=== PATIENT | male | born 1980 | race African-American/Black ===

== ENCOUNTER 2016-08-07 23:06 | Inpatient (IN) ==
--- NOTE | 2016-08-07 23:48 | PROVIDER DOCUMENTATION ---
HPI-Abdominal Pain/GI Problem - General Source: patient - History of Present Illness-ABD Abdominal Pain Onset Location: reports: generalized abdomen Pain Radiation: reports: no radiation Quality of Pain: reports: sharp, throbbing Severity in ED: reports: severe Onset/Duration: reports: 24 hours ago Timing: reports: still present Activities at Onset: reports: none Modifying Factors: improves with: nothing Associated Symptoms: reports: nausea, vomiting <Pati Roth - Last Filed: 08/08/16 02:46> <Macario Mitchell Jr - Last Filed: 08/08/16 02:56> - General Chief Complaint: Abdominal Pain Stated Complaint: ABD PAIN, N/V/D Time Seen by Provider: 08/07/16 23:17 Allergies/Adverse Reactions: Patient Allergies Allergy/AdvReac Type Severity Reaction Status Date / Time tramadol HCl * [From Ultram] Allergy Severe RASH Verified 08/07/16 23:50 morphine Allergy Intermediate ABDOMINAL Verified 08/07/16 23:50 PAIN dicyclomine HCl * Allergy Mild RASH Verified 08/07/16 23:50 [From Bentyl] ketorolac tromethamine * Allergy Mild ABDOMINAL Verified 08/07/16 23:50 [From Toradol] PAIN nalbuphine HCl * Allergy Mild RASH Verified 08/07/16 23:50 [From Nubain] Home Medications: Diphenoxylate/Atropine [Lomotil] 1 each PO 4XDAY PRN PRN 05/07/16 Venlafaxine E.r. [Effexor Xr] 150 mg PO BID 08/07/16 - History of Present Illness-ABD Nature of Presenting Problems: 36 Y/O M presents to ED with abdominal pain. Pt states that yesterday is when the abdominal pain began and then vomiting began said worsen the pain, Abdominal pain generalized, non radiating, sharp throbbing pain states pain was 10/10 on start and 10/10 currently in ED. (Pati Roth) Review of Systems - Adult - REVIEW OF SYSTEMS - ADULT Constitutional: denies: chills, fever Eyes: reports: no symptoms reported Ears, Nose, Mouth & Throat: reports: no symptoms reported Cardiovascular: reports: no symptoms reported Respiratory: reports: no symptoms reported Gastrointestinal: reports: abdominal pain, nausea, vomiting Genitourinary: reports: no symptoms reported Musculoskeletal: reports: no symptoms reported Integumentary: reports: no symptoms reported Neurological: reports: no symptoms reported Psychiatric: reports: no symptoms reported Endocrine: reports: no symptoms reported Hematologic/Lymphatic: reports: no symptoms reported Allergic/Immunologic: reports: no symptoms reported All Other Systems: Reviewed and Negative <Pati Roth - Last Filed: 08/08/16 02:46> Past History - Adult - PAST MEDICAL HISTORY-ADULT Review of Records: reports: Old Records Reviewed, Nursing Assessment Review, Medications Reviewed, Social history reviewed & non-contributory. Major Childhood Illnesses: reports: denies history Cardiovascular: reports: denies history Respiratory: reports: denies history Gastrointestinal: reports: colitis Genitourinary: reports: denies history Musculoskeletal: reports: denies history Neurological: reports: denies history Psychiatric: reports: depression Endocrine/Immune: reports: denies history Other Conditions: reports: denies history - PRIOR SURGERIES/PROCEDURES Surgical/Procedure History: reports: other (has had several GI procedures related to UC, partial colectomy) - PRIOR HOSPITALIZATIONS Prior Hospitalizations: reports: none - IMMUNIZATION STATUS Childhood Immunizations: See Nurse Assessment Flu Vaccine: See Nurse Assessment - FAMILY HISTORY Family History: reviewed, not pertinent - SOCIAL HISTORY Smoking: non-smoker Substance Use: none/never Alcohol Use Frequency: never Living Situation: family <Pati Roth - Last Filed: 08/08/16 02:46> Physical Exam-General - PHYSICAL EXAM-ADULT Initial Vital Signs Reviewed: Yes - CONSTITUTIONAL General Appearance: appears well, alert, moderate distress - EYES Eyes: PERRL/EOMI, pink conjunctivae - HEAD, EARS, NOSE, MOUTH & THROAT HENMT: normocephalic/atraumatic, moist mucous membranes, normal ENT inspection - NECK Neck: non-tender, full range of motion, normal inspection - RESPIRATORY Respiratory: chest non-tender, lungs clear, normal breath sounds - CARDIOVASCULAR Cardiovascular: normal peripheral pulses, regular rate, rhythm, no edema - GASTROINTESTINAL (ABDOMEN) Abdominal Exam: normal bowel sounds, soft, tenderness - LYMPHATIC Lymphatic: no adenopathy - MUSCULOSKELETAL Back Exam: normal inspection, no CVA tenderness, no vertebral tenderness Extremity: normal range of motion, non-tender, normal gait - SKIN Integumentary: normal color, normal turgor, warm/dry - NEUROLOGIC Neurologic: grossly normal, no motor/sensory deficits - PSYCHIATRIC Psych/Mental Status: normal mood/affect, normal thought content, normal thought process, oriented x 3 <Pati Roth - Last Filed: 08/08/16 02:46> Progress - CONSULTS/PCP/HOSPITALIST Notification #1 *Consult/PCP/Hospitalist*: Time Discussed: 02:43 Reason/Comments: Admittance Consult Disposition: Admit (Admit Accepted) <Pati Roth - Last Filed: 08/08/16 02:46> <Macario Mitchell Jr - Last Filed: 08/08/16 02:56> - PLAN OF CARE/RESULTS Progress/Plan/Lab Results: Laboratory Tests 08/07/16 08/07/16 08/08/16 23:45 23:45 00:00 WBC 5.22 RBC 4.74 Hgb 14.1 Hct 41.5 L MCV 87.6 MCH 29.7 MCHC 34.0 RDW Std Deviation 12.0 Plt Count 220 MPV 9.9 Immature Gran % (Auto) 0.0 Neut % (Auto) 59.4 Lymph % (Auto) 20.5 [place] % (Auto) 10.7 H Eos % (Auto) 9.2 Baso % (Auto) 0.2 Immature Gran # (Auto) 0.00 Neut # 3.10 Lymph # 1.07 L [place] # 0.56 Eos # 0.48 Baso # 0.01 Sodium 141 Potassium 3.6 Chloride 101 Carbon Dioxide 29 Anion Gap 11 BUN 10 Creatinine 1.3 H Estimated GFR/1.73 m2 > 60 BUN/Creatinine Ratio 8 Glucose 90 Calculated Osmolality 280 Calcium 8.7 L Total Bilirubin 0.39 AST 24 ALT 16 Alkaline Phosphatase 47 Total Protein 6.8 Albumin 3.9 Globulin 2.9 Albumin/Globulin Ratio 1.3 Amylase 173 Lipase 26 Urine Source CLEAN CATCH Urine Color YELLOW Urine Turbidity CLEAR Urine pH 6.5 Ur Specific [place] 1.026 Urine Protein TRACE A Ur Glucose (Stick) NEGATIVE Ur Ketones (Stick) NEGATIVE Urine Blood NEGATIVE Urine Nitrite NEGATIVE Urine Bilirubin NEGATIVE Urobilinogen Dipstick NORMAL Urine Leukocytes NEGATIVE Urine WBC (Auto) <10 Urine RBC (Auto) <10 U Epithel Cells (Auto) <10 Urine Bacteria (Auto) NEGATIVE Orders Category Date Time Status Saline Loc DIRECTED Care 08/07/16 23:18 Active NPO Diet 08/07/16 23:[address] ABD/PELVIS W/ IV CONT ONLY [CT] Stat Exams 08/08/16 00:39 Taken AMYLASE [CHEM] Stat Lab 08/07/16 23:45 Completed CBC WITH ELECTRONIC DIFF [HEME] Stat Lab 08/07/16 23:45 Completed COMPREHENSIVE METABOLIC PANEL [CHEM] Stat Lab 08/07/16 23:45 Completed LIPASE [CHEM] Stat Lab 08/07/16 23:45 Completed URINALYSIS W/POSS RFLX CULT [URINALYSIS] Stat Lab 08/08/16 00:00 Completed 0.9% Sodium Chloride Inj [Ns] 1,000 ml Med 08/08/16 00:35 Discontinued .ROUTE As Directed 0.9% Sodium Chloride Inj [Ns] 1,000 ml Med 08/08/16 00:39 Discontinued IV 999 mls/hr 0.9% Sodium Chloride Inj [Ns] 1,000 ml Med 08/08/16 00:39 Discontinued IV 999 mls/hr Hydromorphone [Dilaudid] Med 08/08/16 00:17 Discontinued 1 mg IV NOW ONE Hydromorphone [Dilaudid] Med 08/08/16 00:52 Discontinued 1 mg IV NOW ONE Promethazine [Phenergan] Med 08/08/16 00:17 Discontinued 12.5 mg IV NOW ONE Sodium Chloride 0.9% Med 08/08/16 00:17 Discontinued 10 ml INJ NOW ONE Vital Signs - 24 hr 08/07/16 23:09 Temperature 97.6 F Pulse Rate 90 Respiratory 20 Rate Blood Pressure 141/87 O2 Sat by Pulse 100 Oximetry (Pati Roth) Laboratory Tests 08/07/16 08/07/16 08/08/16 23:45 23:45 00:00 WBC 5.22 RBC 4.74 Hgb 14.1 Hct 41.5 L MCV 87.6 MCH 29.7 MCHC 34.0 RDW Std Deviation 12.0 Plt Count 220 MPV 9.9 Immature Gran % (Auto) 0.0 Neut % (Auto) 59.4 Lymph % (Auto) 20.5 [place] % (Auto) 10.7 H Eos % (Auto) 9.2 Baso % (Auto) 0.2 Immature Gran # (Auto) 0.00 Neut # 3.10 Lymph # 1.07 L [place] # 0.56 Eos # 0.48 Baso # 0.01 Sodium 141 Potassium 3.6 Chloride 101 Carbon Dioxide 29 Anion Gap 11 BUN 10 Creatinine 1.3 H Estimated GFR/1.73 m2 > 60 BUN/Creatinine Ratio 8 Glucose 90 Calculated Osmolality 280 Calcium 8.7 L Total Bilirubin 0.39 AST 24 ALT 16 Alkaline Phosphatase 47 Total Protein 6.8 Albumin 3.9 Globulin 2.9 Albumin/Globulin Ratio 1.3 Amylase 173 Lipase 26 Urine Source CLEAN CATCH Urine Color YELLOW Urine Turbidity CLEAR Urine pH 6.5 Ur Specific [place] 1.026 Urine Protein TRACE A Ur Glucose (Stick) NEGATIVE Ur Ketones (Stick) NEGATIVE Urine Blood NEGATIVE Urine Nitrite NEGATIVE Urine Bilirubin NEGATIVE Urobilinogen Dipstick NORMAL Urine Leukocytes NEGATIVE Urine WBC (Auto) <10 Urine RBC (Auto) <10 U Epithel Cells (Auto) <10 Urine Bacteria (Auto) NEGATIVE Orders Category Date Time Status Saline Loc DIRECTED Care 08/07/16 23:18 Active NPO Diet 08/07/16 23:[address] ABD/PELVIS W/ IV CONT ONLY [CT] Stat Exams 08/08/16 00:39 Taken AMYLASE [CHEM] Stat Lab 08/07/16 23:45 Completed CBC WITH ELECTRONIC DIFF [HEME] Stat Lab 08/07/16 23:45 Completed COMPREHENSIVE METABOLIC PANEL [CHEM] Stat Lab 08/07/16 23:45 Completed LIPASE [CHEM] Stat Lab 08/07/16 23:45 Completed URINALYSIS W/POSS RFLX CULT [URINALYSIS] Stat Lab 08/08/16 00:00 Completed 0.9% Sodium Chloride Inj [Ns] 1,000 ml Med 08/08/16 00:35 Discontinued .ROUTE As Directed 0.9% Sodium Chloride Inj [Ns] 1,000 ml Med 08/08/16 00:39 Discontinued IV 999 mls/hr 0.9% Sodium Chloride Inj [Ns] 1,000 ml Med 08/08/16 00:39 Discontinued IV 999 mls/hr Hydromorphone [Dilaudid] Med 08/08/16 00:17 Discontinued 1 mg IV NOW ONE Hydromorphone [Dilaudid] Med 08/08/16 00:52 Discontinued 1 mg IV NOW ONE Promethazine [Phenergan] Med 08/08/16 00:17 Discontinued 12.5 mg IV NOW ONE Sodium Chloride 0.9% Med 08/08/16 00:17 Discontinued 10 ml INJ NOW ONE Vital Signs - 24 hr 08/07/16 23:09 Temperature 97.6 F Pulse Rate 90 Respiratory 20 Rate Blood Pressure 141/87 O2 Sat by Pulse 100 Oximetry (Macario Mitchell Jr) Departure - Departure Time of Disposition Order: 02:46 <Pati Roth - Last Filed: 08/08/16 02:46> - Departure Time of Disposition Order: 02:52 Certified Medical Emergency: Emergent <Macario Mitchell Jr - Last Filed: 08/08/16 02:56> - Departure DIAGNOSIS: Abdominal pain in male Ulcerative colitis Qualifiers: Ulcerative colitis location: other ulcerative colitis Digestive disease complication type: unspecified complication Qualified Code(s): K51.819 - Other ulcerative colitis with unspecified complications Disposition: ADMITTED INPATIENT 09 Condition: Good Referrals: None,PCP [Primary Care Provider] - Attestation - Scribe Verification/Attestation Scribe:: Pati Roth Acting as Scribe for:: Macario Mitchell Jr Scribe documention review:: This chart was documented by a scribe and accurately reflects the service the provider performed and the decisions made by the provider. <Pati Roth - Last Filed: 08/08/16 02:46> Physician Attestation
[2016-08-08] MEDS ORDERED: SODIUM CHLORIDE 0.9% INJ ONE ×2 (00:17→03:06)
[2016-08-08] MEDS ORDERED: DILAUDID IV ONE ×3 (00:17→03:06)
[2016-08-08] MEDS ORDERED: PHENERGAN IV ONE ×2 (00:17→03:06)
[2016-08-08 00:20] LABS: BASO% 0.2 % (0.0-0.8); EOS# 0.48 X1000 (0.0-0.7); EOS% 9.2 % (0.0-10.0); HEMATOCRIT 41.5 % (42.0-52.0); HEMOGLOBIN 14.1 g/dL (14.0-18.0); LYMPH# 1.07 X1000 (1.2-3.4); LYMPH% 20.5 % (20.5-51.1); MANUAL DIFF NEEDED? NO; MCH 29.7 PG (27-31); MCV 87.6 FL (81-99); MONO# 0.56 X1000 (0.11-0.59); MONO% 10.7 % (1.7-9.3); MPV 9.9 FL (7.4-10.4); NEUT% 59.4 % (42.2-75.2); PLT 220 X1000 (130-400); RBC 4.74 XMIL (4.7-6.1)
[2016-08-08 00:27] LABS: URINE CULTURE NEEDED? NO; URINE MICRO REVIEW NEEDED? NO; URINE SOURCE CLEAN CATCH
[2016-08-08 00:31] LABS: BILIRUBIN URINE NEGATIVE (NEGATIVE); BLOOD URINE NEGATIVE (NEGATIVE); COLOR YELLOW; GLUCOSE URINE NEGATIVE (NEGATIVE); LEUKOCYTES URINE NEGATIVE (NEGATIVE); NITRITE URINE NEGATIVE (NEGATIVE); PH URINE 6.5; PROTEIN URINE TRACE mg/dL (NEGATIVE); SP GRAVITY URINE 1.026; TURBIDITY URINE CLEAR (CLEAR); UROBILINOGEN URINE NORMAL (NORMAL)
[2016-08-08 00:32] LABS: UR EPITHELIAL CELLS <10 /HPF (<10); URINE BACTERIA NEGATIVE /HPF; URINE RBC <10 /HPF (<10); URINE WBC <10 /HPF (<10)
[2016-08-08] MEDS ORDERED: NS 1,000 ML ONE (00:35)
[2016-08-08] MEDS ORDERED: NS 1,000 ML IV ONE ×3 (00:39→03:31)
[2016-08-08 00:45] LABS: AGAP 11; ALBUMIN 3.9 g/dL (3.5-5.0); ALKALINE PHOSPHATASE 47 U/L (32-122); AMYLASE 173 U/L (20-200); BUN 10 mg/dL (8-22); CALCIUM 8.7 mg/dL (8.8-10.2); CHLORIDE 101 mmol/L (98-107); COSMO 280; GOT 24 U/L (10-34); GPT 16 U/L (10-44); LIPASE 26 U/L (13-60); POTASSIUM 3.6 mmol/L (3.5-5.1); SODIUM 141 mmol/L (136-145); TCO2 29 mmol/L (25-35); TOTAL BILIRUBIN 0.39 mg/dL (0.20-1.00); TOTAL PROTEIN 6.8 g/dL (6.3-8.3)
--- NOTE | 2016-08-08 05:34 | HISTORY AND PHYSICAL ---
PRIMARY CARE PROVIDER: None. GROCERY CLERK SELLING: Dr. Lopez. CHIEF COMPLAINT: Abdominal pain, nausea, vomiting and chronic diarrhea. HISTORY OF PRESENT ILLNESS: Mr. Quarles is a 36-year-old male who was admitted on 07/05/2016 for these exact complaints. He has a history of ulcerative colitis, total colectomy and ileorectal anastomosis. The patient presented to the ER today complaining of constant, sharp, stabbing and throbbing pain that has been going on for the past day to 2 days in his abdomen. He says that he has had approximately 5 to 8 episodes of emesis today. He has chronic diarrhea and has not noted any kind of blood in his diarrhea black appearance at all. He denies any kind of coffee grounds or isaac bleeding in his emesis. He denies anything making his abdominal pain better or worse other than the Dilaudid which he received in the emergency room. The patient did go on at length about making sure that he received optimal Dilaudid while on the floor. He felt that 2 mg treats his pain much better than 1 mg which he has received in the past. A CT of the abdomen and a flat and upright x-ray that were completed in the emergency room could not totally rule out small bowel obstruction. They appear to be roughly the same as last admission last month. We will admit the patient in observation status and repeat imaging in the morning. REVIEW OF SYSTEMS: Fourteen point review of systems conducted with the patient. Pertinent positives listed above in the HPI. All other systems are negative. PAST MEDICAL HISTORY: 1. Ulcerative colitis. 2. Frequent abdominal pain with nausea and vomiting. 3. Anxiety. 4. Depression. PAST SURGICAL HISTORY: Multiple operations related to ulcerative colitis, two laparotomies and a total colectomy with J-pouch and diverting loop ileostomy with subsequent reversal. SOCIAL HISTORY: Denies tobacco, alcohol or illicit drug use or abuse. FAMILY HISTORY: Positive for hypertension in first-degree relatives. ALLERGIES: Ultram, morphine, Bentyl, Toradol and Nubain. HOME MEDICATIONS: 1. Effexor XR 150 mg p.o. b.i.d. 2. Klonopin 2 mg p.o. b.i.d. 3. Lomotil 1 p.o. 4 times a day p.r.n. for diarrhea. PHYSICAL EXAMINATION: VITAL SIGNS: Temperature 97.6 degrees, pulse 90, respirations 20, blood pressure 141/87, oxygen saturation 100 percent on room air. GENERAL: Mr. Quarles is a pleasant 36-year-old, male lying on the ER stretcher in no acute distress asking for Dilaudid to treat his pain. He states that he has requested Dilaudid and Phenergan in the ER to treat his pain and he is starting to have 10 /10 "pain again". HEENT: Head is atraumatic, normocephalic. Pupils equal, round and reactive to light. Extraocular eye movement intact. Sclerae is anicteric. Conjunctivae is pink. Oral mucosa is moist. NECK: Supple. No JVD. No thyromegaly. Trachea is midline. No cervical lymphadenopathy. CARDIAC: Regular rate and rhythm. S1-S2 appreciated. No murmurs, gallops or rubs. LUNGS: Clear to auscultation bilaterally. No rhonchi, wheezes or rales. Symmetrical rise and fall with respirations. ABDOMEN: Soft, nondistended but diffusely tender. Bowel sounds hyperactive in all 4 quadrants. No rebound tenderness or guarding noted. MUSCULOSKELETAL: Range of motion within normal limits all 4 extremities. EXTREMITIES: No clubbing, cyanosis or edema. NEUROLOGIC: Alert and oriented x3. Cranial nerves 2-12 are grossly intact. SKIN: Warm, dry intact and no acute lesions or rashes. DIAGNOSTIC DATA: A flat and upright x-ray in the ER noted as being possible small bowel obstruction. A CT scan was taken which could not fully rule out small-bowel obstruction. It did show post surgical changes and gaseous distention of the colon on previous studies. LABORATORY DATA: CBC within normal limits. Chemistry within normal limits other than creatinine of 1.3. Patient appears to have a baseline creatinine of 1.1-1.2, GFR remains above 60. Urine unremarkable. ASSESSMENT AND PLAN: 1. Abdominal pain with possible small bowel obstruction. 2. Nausea and vomiting. 3. History of ulcerative colitis with total colectomy and ileorectal anastomosis. 4. Chronic diarrhea. PLAN: Admit patient to the medical floor. We will continue IV Dilaudid 1 mg every 3 hours. We will continue the Phenergan to treat his nausea. Patient states Zofran no longer works. We will give IV normal saline 125 mL an hour. Consult Dr. Lopez his cataloging assistant to see the patient. SCD hose NPO except for by mouth medications. Further recommendations per patient's clinical course. Dictated by BRITTANI Fontaine for Inocente Brennan MD Patient seen and evaluated by I and I agree with MARILIA Wolf's plans. Admit to Observation for serial exams. Bowel rest. IVF for volume and electrolyte correction. pain and symptom control. Consult to GI. MTDD
[2016-08-08] MEDS: PHENERGAN IV PRN ×4 (06:21→20:22)
[2016-08-08] MEDS: NS 1,000 ML IV SCH ×4 (06:22→20:21)
[2016-08-08] MEDS: DILAUDID IV PRN ×6 (06:22→21:28)
--- NOTE | 2016-08-08 08:55 | Diag Imaging Result Document ---
PROCEDURE NAME: CT ABD/PELVIS W/ IV CONT ONLY - 08/08/2016 CT ABDOMEN AND PELVIS WITH INTRAVENOUS CONTRAST: A CT dose reduction protocol was used. COMPARISON: 07/05/2016. FINDINGS: The visualized lung bases are clear. Heart size is normal with no pericardial effusion. The solid abdominal organs are normal. There is persistent, mild wall thickening of the rectal remnant. The small bowel is normal. Urinary bladder and prostate are normal. Bony structures are intact. Stable prominent iliac chain lymph nodes particularly on the right. IMPRESSION: No change from prior. Mild wall thickening of the rectal remnant and prominent iliac lymph nodes. [facility]
[2016-08-08] MEDS: EFFEXOR XR PO SCH ×2 (09:19→22:45)
[2016-08-08] MEDS: LOMOTIL PO PRN ×2 (09:29→22:45)
[2016-08-08] MEDS: KLONOPIN PO PRN ×2 (09:29→22:46)
--- NOTE | 2016-08-08 12:18 | PROGRESS NOTE ---
DATE: 08/08/2016 SUBJECTIVE: Mr. Quarles is a 36-year-old who presented with abdominal pain, nausea, vomiting, chronic diarrhea. Admitted back on 07/05/2016 for this exact complaint. History of ulcerative colitis, total colectomy, and ileorectal anastomosis. The patient presented to the ER complaining of constant sharp, stabbing, and throbbing pain that has been going on for the past 2 days. He says that he has had approximately 5-8 episodes of emesis today, chronic diarrhea. Has not noted any kind of blood in the diarrhea and no black stool. Denies any coffee-ground or isaac bleeding in the emesis. Denies any nothing making his abdominal pain better or worse other than Dilaudid, which he received in the emergency room. The patient did go in length about making sure that he received optimal Dilaudid while he was on the floor. He felt that 2 mg would impede The pain much better than [address] of the abdomen and upright x-ray were completed in the emergency room; could not totally rule out small bowel obstruction. Appears to be roughly the same as last admission. We will admit the patient to observation with imaging in the morning. PAST MEDICAL HISTORY: 1. Ulcerative colitis. 2. Frequent abdominal pain, nausea, and vomiting. 3. Anxiety and depression. PAST SURGICAL HISTORY: 1. Multiple operations related to ulcerative colitis. 2. Laparotomies and a total colectomy with a J-pouch and diverting loop ileostomy and subsequent reversal. DIAGNOSTIC STUDIES: CT of the abdomen and pelvis: No change from prior. Mild wall thickening, rectal remnant, prominent iliac lymph nodes. OBJECTIVE: Vital signs: Today afebrile, temp 97.7 degrees, pulse 83, respirations 12, blood pressure 110/77. Lungs: Clear in all lung webb. Cardiovascular: Regular rhythm and rate without murmur or S3. Abdomen: Soft, nontender, nondistended. Positive bowel sounds. No hepatosplenomegaly. Extremities: Without clubbing, cyanosis, or edema. LAB: Review from yesterday, unremarkable. ASSESSMENT: 1. Abdominal pain, possible small bowel obstruction. 2. Nausea and vomiting. 3. History of ulcerative colitis with total colectomy and ileorectal anastomosis. PLAN: I explained to him that opioids are really not the drug of choice. We want to get his bowels going. He does not appear to have an obstructive ileus. So, we will need to back down on his opioids and will stick to clear liquids at this point, which he is not very happy with. Dr. Lopez is following as well. Reviewed his medications. He is on Dilaudid right now 1 mg q.3 hours. I want to cut it down to q.4 p.r.n. and continue to decrease. Will discuss with Dr. Lopez.
[2016-08-08] MEDS: SODIUM CHLORIDE 0.9% INJ PRN ×2 (12:25→16:12)
--- NOTE | 2016-08-08 13:26 | Diag Imaging Result Document ---
PROCEDURE NAME: ABDOMEN FLAT/UPRIGHT - 08/08/2016 ABDOMEN, 2 VIEWS: COMPARISON: 07/07/2016. FINDINGS: There is some stable mild gas distention of the colon. No small bowel obstruction. No free air. No significant constipation. IMPRESSION: Little change from prior.
--- NOTE | 2016-08-08 14:07 | CONSULTATION ---
DATE OF CONSULTATION: 08/08/2016 REASON FOR REFERRAL: Vomiting, abdominal pain, history of ulcerative colitis. HISTORY OF PRESENT ILLNESS: This is a 36-year-old male who we have seen in the hospital on 2 different occasions. The last was in June, 07/07/2016 he had a flex sigmoidoscopy for abdominal pain and rectal bleeding. Findings showed pouchitis. There was a question of possible ischemia however felt that inflammatory bowel disease was the most likely possibility. He had a J-pouch with ileoanal anastomosis and some cuffitis noted at that time. He was recommended to take Canasa suppositories and possibly start on oral mesalamine. Patient states when he was discharged he was not started on any medicines for his ulcerative colitis. He has reported onset of his symptoms this time on Thursday. He noticed vomiting with abdominal pain. He states the pain was up to a 10 on the pain scale. He has also noticed some increased loose stools. Normally he does have chronic diarrhea and takes Lomotil for that. He denies blood in the stool or black stools. He states the pain is tolerable when he gets Dilaudid. On evaluation, he continues to discuss the Dilaudid and when he wants it and what the other doctors have told him about how much he can receive. CT scan of the abdomen and pelvis showed persistent mild wall thickening of the rectal remnant. The small bowel was normal. Urinary bladder and prostate were normal. There were stable prominent iliac chain lymph nodes on the right. PAST MEDICAL HISTORY: For ulcerative colitis diagnosed in 1998. He had multiple surgeries including a total colectomy with ileorectal anastomosis, he had a colostomy with reversal, he had up to 4 surgeries in 1999 to 2000, also anxiety, depression. PAST SURGICAL HISTORY: Multiple surgeries as noted above for ulcerative colitis. ALLERGIES: TO TRAMADOL CAUSING RASH, MORPHINE ABDOMINAL PAIN, BENTYL RASH, TORADOL ABDOMINAL PAIN, NUBAIN RASH. HOME MEDICATIONS: Lomotil 4 times a day as needed, Klonopin 0.5 mg twice a day as needed, Effexor 150 mg twice a day. SOCIAL HISTORY: Denies tobacco or alcohol use. REVIEW OF SYSTEMS: Per HPI. PHYSICAL EXAMINATION: Vital Signs: Temperature 97.7 degrees, pulse 83, respirations 12, blood pressure 110/77. Generally: He is awake and alert. No acute distress. When asked what his pain level is he states a 9. He is asking to have his Dilaudid increased. HEENT: Normocephalic, atraumatic. Pupils equal, round, reactive to light. Sclerae are nonicteric. Cardiovascular: Regular rate and rhythm. Respiratory: Clear bilaterally. Abdomen: Diffuse tenderness with palpation. Otherwise soft with positive bowel sounds. Extremities: No lower extremity edema noted. DIAGNOSTIC RESULTS: Laboratory. Hematology. White count 5.22, hemoglobin 14.1, hematocrit 41.5, MCV 87.6, platelets 220,000. Chemistry. Sodium 141, potassium 3.6, chloride 101, CO2 29, BUN 10, creatinine 1.3, glucose 90, total bilirubin 0.39, AST 24, ALT 16, alkaline phosphatase 47. CT scan of the abdomen, pelvis showed mild wall thickening of the rectal remnant and prominent iliac lymph nodes. PLAN: Continue supportive care. Flex sigmoidoscopy on 07/07/2016 showed pouchitis and cuffitis. Currently he is not on any medications for his ulcerative colitis. I will discuss his symptoms and plan with Dr. Lopez. Further plans will be made as needed. Thank you for this consultation. Dictated by BRITTANI Navarrete for Donis Lopez MD
[2016-08-08] MEDS: AZULFIDINE PO SCH (22:46)
[2016-08-08] MEDS: CANASA SUPP PR SCH (22:47)
[2016-08-09] MEDS: PHENERGAN IV PRN ×5 (00:37→21:58)
[2016-08-09] MEDS: DILAUDID IV PRN ×8 (00:37→21:34)
[2016-08-09] MEDS: NS 1,000 ML IV SCH ×5 (00:38→21:59)
[2016-08-09 05:28] LABS: MANUAL DIFF NEEDED? NO
[2016-08-09 05:30] LABS: BASO% 0.2 % (0.0-0.8); EOS# 0.19 X1000 (0.0-0.7); EOS% 4.4 % (0.0-10.0); HEMATOCRIT 39.4 % (42.0-52.0); HEMOGLOBIN 13.2 g/dL (14.0-18.0); LYMPH# 0.84 X1000 (1.2-3.4); LYMPH% 19.6 % (20.5-51.1); MCH 30.3 PG (27-31); MCHC 33.5 g/dL (33-37); MCV 90.4 FL (81-99); MONO# 0.44 X1000 (0.11-0.59); MONO% 10.3 % (1.7-9.3); MPV 9.3 FL (7.4-10.4); NEUT% 65.5 % (42.2-75.2); PLT 210 X1000 (130-400); RBC 4.36 XMIL (4.7-6.1)
[2016-08-09] MEDS: AZULFIDINE PO SCH ×3 (05:45→21:35)
[2016-08-09 05:49] LABS: AGAP 13; BUN 7 mg/dL (8-22); CALCIUM 8.5 mg/dL (8.8-10.2); CHLORIDE 103 mmol/L (98-107); COSMO 275; SODIUM 140 mmol/L (136-145); TCO2 24 mmol/L (25-35)
[2016-08-09] MEDS: SODIUM CHLORIDE 0.9% INJ PRN ×3 (06:10→18:08)
[2016-08-09] MEDS: ATIVAN IV PRN (09:20)
[2016-08-09] MEDS: FOLIC ACID PO SCH (10:50)
[2016-08-09] MEDS: EFFEXOR XR PO SCH ×2 (10:50→21:35)
[2016-08-09] MEDS: LOMOTIL PO PRN (12:07)
[2016-08-09] MEDS: KLONOPIN PO PRN (12:07)
--- NOTE | 2016-08-09 13:35 | PROGRESS NOTE ---
DATE: 08/09/2016 SUBJECTIVE: The patient states he continues to have pain and nausea. Sulfasalazine 500 mg 3 times a day, folic acid 1 mg daily, and Canasa suppository started yesterday. He continues to ask for Dilaudid for pain. OBJECTIVE: Vital signs: Temperature 98.0 degrees, pulse 94, respirations 12, blood pressure 128/82. LABORATORY: Hematology: White count 4.29, hemoglobin 13.2, hematocrit 39.4, MCV 90.4, platelets 210,000. Chemistry: Sodium 140, potassium 4.0, chloride 103, CO2 of 24. BUN 7, creatinine 1.0, glucose 62. ASSESSMENT: 1. Abdominal pain. 2. Nausea. 3. Ulcerative colitis. PLAN: Continue sulfasalazine 500 mg 3 times a day. We will increase to 1 g t.i.d. in the next day or so if he tolerates continues Canasa suppository. Recommended to decrease Dilaudid frequency over the next day or so. I had a long discussion with him about judicious use of pain medicines and about the need to come off of pain medications and treat his ulcerative colitis symptoms. The patient was also seen by Dr. Lopez. Dictated by BRITTANI Navarrete for Donis Lopez MD
--- NOTE | 2016-08-09 15:55 | PROGRESS NOTE ---
DATE: 08/09/2016 SUBJECTIVE: Mr. Quarles has been requesting and nurses have been calling for wanting us to go up on his Dilaudid He does get tachycardia. He does have some nausea. I had a discussion with him again about my concern about his level of opioids. I have raised several objections; one is that this is not the type of medicine we are suppose to be using for treatment of inflammatory bowel disease, and my second was that it appears that he is developing opioid dependence. We are giving 1 mg every 3 hours, and he feels like he needs more, so I explained that I will keep him at this present dose but that I am concerned about his level of pain medicine and his tolerance to it. I am concerned about the consequences in the near future as well as down the road. We are going to keep him at 1 mg q. 3 hours. Tomorrow, we will cut it down to [address] Lopez is following him. He is going to try again incorporate some medication for the proctitis. I am going to advance him to regular food. OBJECTIVE: Temperature 98 degrees, respirations 12, pulse 94, blood pressure 128/82. Lungs are clear in all lung webb. Cardiovascular: Regular rhythm and rate without murmur or S3. Abdomen is soft. Skin is warm and dry. Urine output 700 mL. LABORATORIES: From today, white count 4290. Hematocrit 39, platelet count 210,000. Sodium 140, potassium 4.0, chloride 103, bicarb 24, BUN 7, creatinine 1.0. ASSESSMENT AND PLAN: Proctitis. He had a flexible sigmoidoscopy on 07/07/2016 that showed proctitis and Currently, not on any medications for his ulcerative colitis. Dr. Lopez is going to start some today. He has tried to get him on before, but he is on mesalamine suppository 1000 mg per rectum at bedtime. He is on sulfasalazine 500 mg p.o. q. 8 hours, getting fluids at normal saline 125 mL an hour. He is on Effexor ER 150 mg b.i.d., Ativan I have added p.r.n. Phenergan 12.5 IV q.4 hours p.r.n. He is getting Dilaudid 1 mg IV q. 3 hours and gets that pretty much around the clock. His on Klonopin 0.5 mg b.i.d.. We will advance his diet. Tomorrow, he will go down on Dilaudid. I will go down to one q.4 hours. He understands that, and then I will like to taper down the following day to one q.5.
[2016-08-09] MEDS: CANASA SUPP PR SCH (21:35)
[2016-08-10] MEDS: DILAUDID IV PRN ×8 (00:26→20:25)
[2016-08-10] MEDS: NS 1,000 ML IV SCH ×4 (03:19→20:30)
[2016-08-10] MEDS: SODIUM CHLORIDE 0.9% INJ PRN (03:19)
[2016-08-10] MEDS: PHENERGAN IV PRN ×5 (03:19→20:26)
[2016-08-10] MEDS: AZULFIDINE PO SCH ×3 (06:04→20:30)
[2016-08-10] MEDS: FOLIC ACID PO SCH (08:19)
[2016-08-10] MEDS: EFFEXOR XR PO SCH ×2 (08:19→20:30)
[2016-08-10] MEDS: LOMOTIL PO PRN ×2 (08:29→23:21)
[2016-08-10] MEDS: KLONOPIN PO PRN ×2 (08:29→23:21)
[2016-08-10] MEDS: ATIVAN IV PRN ×2 (13:22→19:49)
--- NOTE | 2016-08-10 18:42 | PROGRESS NOTE ---
DATE: 08/10/2016 SUBJECTIVE: Mr. Quarles is standing up and walking the halls. He says he has still got nausea. Complains of the rectal pain. He understands we are going to cut down the Dilaudid today, not real happy about that. We had a long discussion, several of them about my concern about his opioid dependence and the level of opiates that we are giving him. And also the fact that this pain medicine is not appropriate for his particular pain. OBJECTIVE: Vital signs: He is afebrile, temperature 98.2 degrees, pulse 92, respirations 18, blood pressure 141/86. Lungs: Clear in all lung webb. Cardiovascular: Regular rhythm and rate without murmur or S3. Abdomen: Soft, nontender. Good urine output. LABORATORIES: Reviewed from yesterday. Unremarkable. ASSESSMENT AND PLAN: 1. Proctitis, ulcerative colitis, persistent nausea, need to decrease his Dilaudid. He is getting sulfasalazine 500 mg q.8, normal saline at 125 mL an hour. He is also on rectal suppositories which is the mesalamine 1000 mg per rectum at bedtime, so we will decrease the Dilaudid down from q.3 to q.4 hours and taper again tomorrow hopefully.
[2016-08-10] MEDS ORDERED: HEPARIN ONE (20:00)
--- NOTE | 2016-08-10 20:17 | PROGRESS NOTE ---
DATE: 08/10/2016 SUBJECTIVE: Patient is sitting in his bed. He is complaining of "same old same old," is complaining of abdominal pain associated with nausea. He has tried to eat solid food and claims he had vomited some but was not witnessed by the nurse. He is currently on pain medication and has been on sulfasalazine 500 mg p.o. t.i.d. along with folic acid and some [place] suppository.Vitals: Temperature 98.2 degrees, pulse 92 per minute, breathing 18 , blood pressure 141/86. Abdomen: Flat, soft, mildly tender. Bowel sounds audible. No mass or visceromegaly noted. IMPRESSION: History of ulcerative colitis status post colon resection, abdominal pain, nausea. PLAN: Recommended to continue sulfasalazine 500 mg p.o. t.i.d. and stay on folic acid. Continue Canasa suppository. I would recommend to change his diet to lactose- free diet and avoid milk and milk products. Also add Gas-X 1-2 p.o. t.i.d. for gas and I am going to empirically treat him with antibiotic for possible pouchitis. I explained finding, plan. He understands, all his pertinent questions answered. MTDD
[2016-08-10] MEDS: CANASA SUPP PR SCH (20:30)
[2016-08-11] MEDS: SODIUM CHLORIDE 0.9% INJ PRN ×2 (00:20→03:58)
[2016-08-11] MEDS: PHENERGAN IV PRN ×2 (00:20→03:57)
[2016-08-11] MEDS: DILAUDID IV PRN ×2 (00:20→03:58)
[2016-08-11] MEDS: NS 1,000 ML IV SCH ×2 (04:02→13:32)
[2016-08-11] MEDS: LOMOTIL PO PRN ×2 (04:07→16:49)
[2016-08-11] MEDS: AZULFIDINE PO SCH ×3 (05:06→23:44)
[2016-08-11] MEDS: NORCO-10 PO PRN ×2 (08:33→16:43)
[2016-08-11] MEDS: FOLIC ACID PO SCH (08:33)
[2016-08-11] MEDS: EFFEXOR XR PO SCH ×2 (08:33→23:44)
[2016-08-11] MEDS: PHENERGAN PO PRN ×2 (08:33→16:43)
--- NOTE | 2016-08-11 12:01 | PROGRESS NOTE ---
DATE: 08/11/2016 SUBJECTIVE: 1. His IV has infiltrated. They tried 8 times to stick him back again. He is not on an IV. I explained to him that I do not want to put a PICC line in and that I am going to use this time to get him off of the Dilaudid. We will switch him over to p.o. [place] once again. I reiterated Dilaudid is not indicated for pain for proctitis and for his chronic ulcerative colitis. 2. I expressed my concern that the level of Dilaudid that he is requiring, and he would like more, have been very resistant to taper down and constantly calling to try and get more medication. 3. I do not think that the risk of a PICC line before giving the medication that I do not think it is indicated should be pursued, so we are going to switch him to p.o. [place]. 4. He needs to try to be compliant to his medications for his proctitis, like take his medication, follow up with GI, and then I have expressed openly with him, and we have had isaac conversations that I believe that he is dependent on opioids at this point, that he has an opioid drug addiction. He denies use at home but I did take re-explain the plan that we are not going to try and put a PICC line in. We are going to switch to [place]. Will give 10 mg q.6 hours p.r.n. and try and taper from there. Oftentimes they have to wake him up because he is sleeping, and he is still requesting the Dilaudid, and this is well documented in the nurse's notes. OBJECTIVE: Vital signs: Temperature 97.7 degrees, pulse 79, respirations 16, blood pressure 146/92. Respiratory: Lungs are clear in all lung webb. Cardiovascular: Regular rhythm and rate without murmur or S3. Abdomen: Soft. Skin is warm and dry. Good urine output. LAB: White count 4290, hematocrit 39, platelet count 210,000. His electrolytes sodium 140, potassium 4.0, chloride 103, bicarb 24, BUN 7, creatinine 1.0. Liver functions unremarkable. ASSESSMENT AND PLAN: 1. He has proctitis and ulcerative colitis. He claims he has persistent nausea and not eating real well. We will stop the Dilaudid IV access as his IV came out. The original plan was to try and taper him but I am going to switch him over to [place] at this point. 2. Opioid dependence. It has been a daily struggle to try to get him to taper down. Encouraged him to stay on the sulfasalazine and his rectal suppositories of mesalamine. He is not happy with the going to the [place].
--- NOTE | 2016-08-11 16:26 | PROGRESS NOTE ---
DATE: 08/11/2016 SUBJECTIVE: The patient reports continued abdominal discomfort and nausea. Unfortunately his IV line went bad and to be removed. Since then he was started on [place] p.o. which he claims has not helped his pain and discomfort. Dr. Meadows is following his pain medications. Otherwise, he denies any bloody diarrhea. Has not had any fever or chills. PHYSICAL EXAMINATION: Vital signs: Temperature 97.7 degrees, pulse is 79 per minute and regular, breathing at the rate of 16, blood pressure 146/92. HEENT: Within normal limits. Abdomen: Flat, soft. Mildly tender in the lower abdomen. No masses were noted. Bowel sounds are audible. IMPRESSION: 1. Ulcerative colitis status post bowel resection. 2. Hepatitis. 3. Chronic pain syndrome. RECOMMENDATION: I would continue his sulfasalazine and Canasa suppository along with his [place] catheter. Symptomatic treatment for his pain and discomfort and also gas. Encouraged him to avoid milk and milk products. Unfortunately, there is no much from a GI point of view that can be done as far as the chronic pain goes. Advised him to follow up with me once discharged from the hospital.
[2016-08-11] MEDS: KLONOPIN PO PRN (16:48)
[2016-08-11] MEDS: CANASA SUPP PR SCH (23:44)
[2016-08-12] MEDS: NORCO-10 PO PRN ×4 (03:35→21:27)
[2016-08-12] MEDS: PHENERGAN PO PRN ×4 (03:36→21:28)
[2016-08-12] MEDS: AZULFIDINE PO SCH ×3 (06:41→21:27)
[2016-08-12] MEDS: EFFEXOR XR PO SCH ×2 (09:39→21:28)
[2016-08-12] MEDS: FOLIC ACID PO SCH (09:39)
[2016-08-12] MEDS: LOMOTIL PO PRN ×2 (09:46→15:15)
[2016-08-12] MEDS: KLONOPIN PO PRN ×2 (09:46→21:28)
--- NOTE | 2016-08-12 10:25 | PROGRESS NOTE ---
DATE: 08/12/2016 SUBJECTIVE: Mr. Quarles said that he had a rough night. Does not appear to be any pain at this time. Still complains of some nausea. PHYSICAL EXAMINATION: Vital Signs: Temperature 98 degrees, pulse 90, respirations 16, blood pressure 124/82. Lungs: Are clear in all lung webb. Cardiovascular Examination: Regular rhythm and rate without murmur or S3. Abdomen: Soft. Skin: Is warm and dry. LAB: Reviewed from the , unremarkable. ASSESSMENT AND PLAN: 1. Ulcerative colitis, status post bowel resection. Proctitis doing better from that endpoint. Continue his sulfasalazine and Canasa suppositories. See if we can get rid of his Doyle catheter. He is encouraged to avoid milk and milk products. 2. Hepatitis. 3. Chronic pain syndrome. Intravenous line came out. He is on hydrocodone. He is on 10 mg 4 times a day. We have discussed concern on his opioid dependence, significant reduction, can continue present regimen. Encouraged him to go home when he feels ready. I do not want to go up on his opioid pain medications. I will continue mesalamine suppositories 1000 mg per rectum at bedtime, sulfasalazine 500 mg by mouth every 8 hours. He is getting Ativan for anxiety. We will discontinue his Doyle catheter.
[2016-08-12] MEDS: CANASA SUPP PR SCH (21:28)
[2016-08-13] MEDS: NORCO-10 PO PRN ×4 (04:21→22:52)
[2016-08-13] MEDS: AZULFIDINE PO SCH ×3 (04:21→22:52)
[2016-08-13] MEDS: PHENERGAN PO PRN ×4 (04:21→22:52)
[2016-08-13] MEDS: EFFEXOR XR PO SCH ×2 (10:23→22:52)
[2016-08-13] MEDS: FOLIC ACID PO SCH (10:23)
[2016-08-13] MEDS: KLONOPIN PO PRN ×2 (10:27→16:45)
[2016-08-13] MEDS: LOMOTIL PO PRN ×3 (10:27→23:19)
--- NOTE | 2016-08-13 17:02 | PROGRESS NOTE ---
DATE: 08/13/2016 SUBJECTIVE: Mr. Quarles has lights off and sleeping. He says he does not feel much better. Of course, he does not appear uncomfortable. He still has some rectal irritation and some nausea. OBJECTIVE: Vital Signs: Temperature 98, pulse 103, respirations 20, blood pressure 125/78. Lungs: Are clear in all lung webb. Cardiovascular: Exam regular rhythm and rate without murmur or S3. Abdomen: Soft. Skin: Warm and dry. LAB: Reviewed from the and also reviewed his chemistries. Hematology reviewed from as well. Hematocrit is stable. ASSESSMENT: 1. Ulcerative colitis, status post bowel resection. 2. Hepatitis. 3. Chronic pain syndrome. 4. Opioid withdrawal. PLAN: Have cut him down to hydrocodone 10 mg 4 times a day. Encouraged him to eat. Encouraged him to get some exercise and see if we can get him out of here. He is on sulfasalazine 500 mg p.o. q.8 hours and was on mesalamine 1000 mg per rectum at bedtime, folic acid 1 a day. Effexor 150 b.i.d., Ativan he is getting as needed. Klonopin 0.5 mg b.i.d. p.r.n. and hydrocodone 10 mg q.6 hours p.r.n.
[2016-08-13] MEDS: CANASA SUPP PR SCH (22:53)
[2016-08-14 05:58] LABS: MANUAL DIFF NEEDED? NO
[2016-08-14 06:02] LABS: BASO% 0.7 % (0.0-0.8); EOS# 0.27 X1000 (0.0-0.7); EOS% 9.1 % (0.0-10.0); HEMATOCRIT 42.2 % (42.0-52.0); HEMOGLOBIN 14.2 g/dL (14.0-18.0); LYMPH# 0.94 X1000 (1.2-3.4); LYMPH% 31.5 % (20.5-51.1); MCH 29.5 PG (27-31); MCHC 33.6 g/dL (33-37); MCV 87.6 FL (81-99); MONO# 0.36 X1000 (0.11-0.59); MONO% 12.1 % (1.7-9.3); NEUT% 46.6 % (42.2-75.2); PLT 273 X1000 (130-400); RBC 4.82 XMIL (4.7-6.1)
[2016-08-14] MEDS: AZULFIDINE PO SCH ×3 (06:25→21:54)
[2016-08-14] MEDS: LOMOTIL PO PRN ×4 (06:27→21:58)
[2016-08-14 07:01] LABS: AGAP 13; ALBUMIN 3.7 g/dL (3.5-5.0); ALKALINE PHOSPHATASE 49 U/L (32-122); BUN 13 mg/dL (8-22); CALCIUM 9.1 mg/dL (8.8-10.2); CHLORIDE 99 mmol/L (98-107); COSMO 273; GOT 51 U/L (10-34); GPT 37 U/L (10-44); POTASSIUM 4.1 mmol/L (3.5-5.1); SODIUM 137 mmol/L (136-145); TCO2 25 mmol/L (25-35); TOTAL BILIRUBIN 0.23 mg/dL (0.20-1.00); TOTAL PROTEIN 6.8 g/dL (6.3-8.3)
[2016-08-14] MEDS: NORCO-10 PO PRN ×3 (08:26→21:55)
[2016-08-14] MEDS: FOLIC ACID PO SCH (08:26)
[2016-08-14] MEDS: EFFEXOR XR PO SCH ×2 (08:26→21:54)
[2016-08-14] MEDS: PHENERGAN PO PRN ×3 (08:26→21:55)
[2016-08-14] MEDS: KLONOPIN PO PRN ×2 (08:26→21:55)
[2016-08-14] MEDS: CANASA SUPP PR SCH (21:55)
[2016-08-15] MEDS: AZULFIDINE PO SCH ×3 (04:54→20:16)
[2016-08-15] MEDS: LOMOTIL PO PRN ×4 (04:54→20:16)
[2016-08-15 05:31] LABS: MANUAL DIFF NEEDED? NO
[2016-08-15 05:37] LABS: BASO% 0.6 % (0.0-0.8); EOS# 0.24 X1000 (0.0-0.7); EOS% 7.1 % (0.0-10.0); HEMATOCRIT 42.5 % (42.0-52.0); HEMOGLOBIN 14.3 g/dL (14.0-18.0); LYMPH# 1.27 X1000 (1.2-3.4); LYMPH% 37.5 % (20.5-51.1); MCH 29.7 PG (27-31); MCHC 33.6 g/dL (33-37); MCV 88.2 FL (81-99); MONO# 0.59 X1000 (0.11-0.59); MONO% 17.4 % (1.7-9.3); MPV 9.1 FL (7.4-10.4); NEUT% 37.4 % (42.2-75.2); PLT 279 X1000 (130-400); RBC 4.82 XMIL (4.7-6.1)
[2016-08-15 05:51] LABS: AGAP 16; ALBUMIN 3.6 g/dL (3.5-5.0); ALKALINE PHOSPHATASE 60 U/L (32-122); BUN 12 mg/dL (8-22); CHLORIDE 100 mmol/L (98-107); COSMO 275; GOT 75 U/L (10-34); GPT 54 U/L (10-44); POTASSIUM 4.3 mmol/L (3.5-5.1); SODIUM 138 mmol/L (136-145); TCO2 22 mmol/L (25-35); TOTAL BILIRUBIN 0.22 mg/dL (0.20-1.00)
[2016-08-15] MEDS: EFFEXOR XR PO SCH ×2 (08:22→20:16)
[2016-08-15] MEDS: NORCO-10 PO PRN ×3 (08:22→20:16)
[2016-08-15] MEDS: PHENERGAN PO PRN ×3 (08:22→20:16)
[2016-08-15] MEDS: FOLIC ACID PO SCH (08:22)
[2016-08-15] MEDS: KLONOPIN PO PRN ×2 (08:26→20:16)
--- NOTE | 2016-08-15 13:57 | PROGRESS NOTE ---
DATE: 08/15/2016 He does state he is better. He still has nausea. He has trouble keeping food down but overall better. OBJECTIVE: Temp 97.8 degrees, pulse 100, respirations 18, blood pressure 114/76. Lungs: Are clear in all lung webb. Cardiovascular: Regular rhythm and rate without murmur or S3. Abdomen: Soft. Skin: Is warm and dry. LAB: Reviewed from white count 3390, hematocrit 42, platelet count 279,000. Renal function looks good. ASSESSMENT AND PLAN: 1. Ulcerative colitis, bronchitis. Continued his topical care. Seems to be doing better. 2. Hepatitis. Liver enzymes have come down. 3. Chronic pain syndrome and opioid withdrawal. He is improving. Nausea is going down. Continue present [place] 10 mg 4 times a day. Encouraged him to get up and encouraged him to continue eating. I think he will need to be here 2-3 more days.
[2016-08-15] MEDS: CANASA SUPP PR SCH (20:16)
[2016-08-16] MEDS: AZULFIDINE PO SCH ×3 (06:06→22:10)
[2016-08-16] MEDS: FOLIC ACID PO SCH (08:51)
[2016-08-16] MEDS: EFFEXOR XR PO SCH ×2 (08:51→22:10)
[2016-08-16] MEDS: PHENERGAN PO PRN ×3 (08:51→22:09)
[2016-08-16] MEDS: NORCO-10 PO PRN ×3 (08:52→22:10)
[2016-08-16] MEDS: LOMOTIL PO PRN ×4 (08:52→22:09)
--- NOTE | 2016-08-16 12:20 | PROGRESS NOTE ---
DATE: 08/16/2016 SUBJECTIVE: He does feel better. Still having some nausea. Intervals between nausea better. He is getting food down. Bowels are moving. The patient seems to have had diminished warmth. PHYSICAL EXAMINATION: Vital Signs: Temperature 97.7 degrees; he has remained afebrile. Pulse 100, respirations 18, blood pressure 133/86. Lungs: Clear in all lung webb. Cardiovascular: Regular rhythm and rate without murmur or S3. Abdomen: Soft. Skin: Warm and dry. : Good urine output. LABS: Review of lab from the thirtieth: Hematocrit stable at 42. Electrolytes checked at the same time and are unremarkable. ASSESSMENT AND PLAN: 1. Ulcerative colitis, proctitis. Continue his current medications, both the rectal suppository and sulfasalazine 500 mg oral every 8 hours, mesalamine 1000 mg per rectum daily and folic acid. 2. Hepatitis, resolved. 3. Chronic pain syndrome. 4. Opioid withdrawal, which is improving. 5. Continues present [place] 10 four times a day. Review of orders: I do not see any change at this time.
[2016-08-16] MEDS: KLONOPIN PO PRN ×2 (12:22→19:20)
[2016-08-16] MEDS: CANASA SUPP PR SCH (22:11)
[2016-08-17] MEDS: NORCO-10 PO PRN ×4 (04:35→22:30)
[2016-08-17] MEDS: PHENERGAN PO PRN ×4 (04:35→22:31)
[2016-08-17] MEDS: AZULFIDINE PO SCH ×3 (04:35→22:31)
[2016-08-17] MEDS: LOMOTIL PO PRN ×4 (04:36→22:31)
[2016-08-17] MEDS: EFFEXOR XR PO SCH ×2 (08:21→22:31)
[2016-08-17] MEDS: FOLIC ACID PO SCH (08:22)
[2016-08-17] MEDS: KLONOPIN PO PRN (08:32)
--- NOTE | 2016-08-17 16:33 | PROGRESS NOTE ---
DATE: 08/17/2016 SUBJECTIVE: Mr. Quarles does feel better. Nausea is less, seems to be more comfortable. OBJECTIVE: Vital signs: Temperature 98 degrees, pulse 98, respirations 16, blood pressure 122/76. Eyes: The pupils are equal, round, react to light and accommodation. Respiratory: Lungs are clear in all lung webb. Cardiovascular: Regular rhythm and rate without murmur or S3. Abdomen: Soft. Skin: Is warm and dry. ASSESSMENT AND PLAN: 1. Ulcerative colitis. Proctitis. Continue sulfasalazine 500 mg q.8, mesalamine 1000 mg per rectum suppository daily and folic acid. 2. Hepatitis, resolving. 3. Chronic pain syndrome. I have cut his pain medicine down. He is on [place], hydrocodone 10 mg 4 times a day and seems to be tolerating this well. Opioid withdrawal. 4. Nausea has improved. Making good progression. We will recheck lab again in the morning. I have reviewed his orders. I do not see any change at this point.
[2016-08-17 17:03] LABS: AGAP 10; ALBUMIN 3.6 g/dL (3.5-5.0); ALKALINE PHOSPHATASE 55 U/L (32-122); BUN 12 mg/dL (8-22); CALCIUM 8.8 mg/dL (8.8-10.2); CHLORIDE 101 mmol/L (98-107); COSMO 275; GOT 64 U/L (10-34); GPT 60 U/L (10-44); POTASSIUM 4.4 mmol/L (3.5-5.1); SODIUM 138 mmol/L (136-145); TCO2 27 mmol/L (25-35); TOTAL BILIRUBIN 0.24 mg/dL (0.20-1.00); TOTAL PROTEIN 6.6 g/dL (6.3-8.3)
[2016-08-17] MEDS: CANASA SUPP PR SCH (22:32)
[2016-08-18] MEDS: AZULFIDINE PO SCH ×2 (05:08→12:33)
[2016-08-18] MEDS: LOMOTIL PO PRN ×3 (05:08→18:15)
[2016-08-18] MEDS: PHENERGAN PO PRN ×3 (05:09→18:15)
[2016-08-18] MEDS: NORCO-10 PO PRN ×3 (05:09→18:15)
[2016-08-18 05:46] LABS: MANUAL DIFF NEEDED? NO
[2016-08-18 05:58] LABS: BASO% 0.3 % (0.0-0.8); EOS% 6.6 % (0.0-10.0); HEMATOCRIT 41.8 % (42.0-52.0); LYMPH# 1.07 X1000 (1.2-3.4); LYMPH% 35.1 % (20.5-51.1); MCH 29.6 PG (27-31); MCHC 33.5 g/dL (33-37); MCV 88.4 FL (81-99); MONO# 0.38 X1000 (0.11-0.59); MONO% 12.5 % (1.7-9.3); MPV 9.2 FL (7.4-10.4); NEUT% 45.5 % (42.2-75.2); PLT 306 X1000 (130-400); RBC 4.73 XMIL (4.7-6.1)
[2016-08-18] MEDS: EFFEXOR XR PO SCH ×2 (09:43→12:33)
[2016-08-18] MEDS: FOLIC ACID PO SCH ×2 (09:43→12:34)
--- NOTE | 2016-08-18 11:07 | PROGRESS NOTE ---
DATE: 08/18/2016 SUBJECTIVE: Mr. Quarles is feeling better. Nausea less. He feels like maybe can try and go home tomorrow. OBJECTIVE: Vital Signs: Hemodynamics are stable. Temperature 97.9 degrees, pulse 96 degrees, pulse 16, blood pressure 122/83. Lungs: Clear in all lung webb. Cardiovascular: Regular rhythm and rate without murmur or S3. Abdomen: Soft. Skin is warm and dry. LABORATORY DATA: Reviewed from today, white count 3050, hematocrit 41, platelet count 306,000. Sodium 138, potassium 4.4, chloride 101, bicarbonate 27, BUN 12, creatinine 1.2. Liver functions are coming down. AST 64, ALT was 60. ASSESSMENT/PLAN: 1. Ulcerative colitis. Proctitis better. Continue his mesalamine 1000 mg per rectum suppository daily, folic acid 1 mg a day. Sulfasalazine 500 mg p.o. 8h. 2. Hepatitis which is resolving. Suspect from medication. 3. Chronic pain syndrome and he will cut down his pain medication. 4. Opioid dependence and was able to cut this down. The nausea is improving. Hopefully, he can go home in the morning.
[2016-08-18] MEDS: KLONOPIN PO PRN (12:39)
[2016-08-19] MEDS: EFFEXOR XR PO SCH ×3 (00:22→23:54)
[2016-08-19] MEDS: LOMOTIL PO PRN ×4 (00:22→23:53)
[2016-08-19] MEDS: CANASA SUPP PR SCH ×2 (00:22→23:54)
[2016-08-19] MEDS: NORCO-10 PO PRN ×5 (00:23→23:53)
[2016-08-19] MEDS: AZULFIDINE PO SCH ×4 (00:23→23:54)
[2016-08-19] MEDS: PHENERGAN PO PRN ×5 (00:23→23:54)
[2016-08-19] MEDS: FOLIC ACID PO SCH (12:41)
[2016-08-19] MEDS: KLONOPIN PO PRN (12:42)
--- NOTE | 2016-08-19 13:53 | PROGRESS NOTE ---
DATE: 08/19/2016 SUBJECTIVE: Mr. Quarles had more nausea and discomfort last night. Did not sleep much. Still pretty uncomfortable. OBJECTIVE: Vital signs: Today temp 98.1 degrees, pulse 92, respirations 16, blood pressure 120/72. Lungs: Clear in all lung webb. Cardiovascular: Regular rhythm and rate without murmur or S3. Abdomen: Soft. Skin: Warm and dry. LAB: Reviewed from yesterday. ASSESSMENT AND PLAN: 1. Intractable nausea, ulcerative colitis, proctitis. Continue present mesalamine and sulfasalazine. 2. Hepatitis, nonspecific. Suspect medication. Improved. 3. Chronic pain syndrome. Have cut down his pain medicine. 4. Opioid dependence. We have cut him down where he is on [place] 10 four times a day. Hope to send home soon.
[2016-08-20] MEDS: AZULFIDINE PO SCH ×3 (05:54→22:17)
[2016-08-20 05:59] LABS: AGAP 11; ALBUMIN 3.8 g/dL (3.5-5.0); ALKALINE PHOSPHATASE 56 U/L (32-122); BUN 11 mg/dL (8-22); CALCIUM 9.3 mg/dL (8.8-10.2); CHLORIDE 100 mmol/L (98-107); COSMO 274; GOT 59 U/L (10-34); GPT 74 U/L (10-44); POTASSIUM 4.1 mmol/L (3.5-5.1); SODIUM 138 mmol/L (136-145); TCO2 27 mmol/L (25-35); TOTAL BILIRUBIN 0.35 mg/dL (0.20-1.00); TOTAL PROTEIN 6.9 g/dL (6.3-8.3)
[2016-08-20] MEDS: FOLIC ACID PO SCH (08:41)
[2016-08-20] MEDS: EFFEXOR XR PO SCH ×2 (08:41→22:17)
[2016-08-20] MEDS: LOMOTIL PO PRN ×3 (08:55→22:20)
[2016-08-20] MEDS: KLONOPIN PO PRN ×2 (08:55→22:17)
[2016-08-20] MEDS: PHENERGAN PO PRN ×3 (08:55→22:58)
[2016-08-20] MEDS: NORCO-10 PO PRN ×3 (08:55→22:58)
--- NOTE | 2016-08-20 12:53 | PROGRESS NOTE ---
DATE: 08/20/2016 Mr. Quarles still with significant nausea. He states the [place] is controlling the pain. He is getting some food down. Still does not feel he is ready go home.Vital signs: Temperature 97.8 degrees, pulse 96 degrees, respirations 20, blood pressure 112/77. Lungs: Are clear in all lung webb. Cardiovascular: Regular rhythm and rate without murmur or S3. Abdomen: Soft. Skin is warm and dry. LABS: Reviewed lab from yesterday, electrolytes. ASSESSMENT AND PLAN: 1. Intractable nausea, ulcerative colitis, proctitis. It appears to be improving. Continue his [place] 10 mg 4 times a day. Continue his present medication for ulcerative colitis. Hopefully home soon. 2. Hepatitis. Liver functions have improved. 3. Chronic pain syndrome. 4. Opiate dependence which this is improved and his bowels are still loose by his report. Review of his orders: He is getting folic acid 1 mg a day, mesalamine at 1000 mg per rectum at bedtime, sulfasalazine 500 mg q.8 hours, Effexor ER 150 mg b.i.d., hydrocodone 10 mg 4 times a day, Phenergan as needed, Klonopin 0.5 mg b.i.d. p.r.n.
--- NOTE | 2016-08-20 15:00 | PROGRESS NOTE ---
DATE: 08/20/2016 The patient states he is feeling a little better. He is still having some abdominal pain but it has improved. He is hoping to go home tomorrow. OBJECTIVE EXAM: Vital Signs: Temperature 97.8 degrees, pulse 96, respirations 20, blood pressure 112/77. General: Patient is awake and alert. No acute distress. Respiratory: Lung sounds essentially clear bilaterally. Abdomen: Mildly tender with palpation. Soft positive bowel sounds. LABORATORY: Chemistry: Sodium 138, potassium 4.1, chloride 100, CO2 27, BUN 11, creatinine 1.1, glucose 83, total bilirubin 0.35, AST 59, ALT 74, alkaline phosphatase 56. ASSESSMENT AND PLAN: 1. Ulcerative colitis. 2. Proctitis. 3. Abdominal pain. 4. Nausea and vomiting. 5. Hepatitis. Following numbers have improved slightly. 6. Opioid dependence. We are working with trying to get him off of [place] and hopefully he will be able to go home soon. I have started the patient assistance form for Canasa suppositories since patient does not have insurance. Hopefully he can afford sulfasalazine since it is generic medication. I have asked the patient to call me at the office once he is discharged about trying to get some samples of Canasa until we can possibly get patient assistance for it while he is continuing to be on that. I have discussed this case with Dr. Lopez. Dictated by BRITTANI Navarrete for Donis Lopez MD
[2016-08-20] MEDS: REGLAN PO SCH ×2 (16:39→22:17)
[2016-08-20] MEDS: CANASA SUPP PR SCH (22:20)
[2016-08-21 08:25] VITALS: BP 112/81
[2016-08-21] MEDS: LOMOTIL PO PRN (09:07)
[2016-08-21] MEDS: KLONOPIN PO PRN (09:07)
[2016-08-21] MEDS: FOLIC ACID PO SCH (09:07)
[2016-08-21] MEDS: EFFEXOR XR PO SCH (09:07)
[2016-08-21] MEDS: NORCO-10 PO PRN (09:07)
[2016-08-21] MEDS: REGLAN PO SCH ×2 (09:07→14:05)
[2016-08-21] MEDS: PHENERGAN PO PRN (09:07)
[2016-08-21] MEDS: AZULFIDINE PO SCH ×2 (09:08→14:10)
--- NOTE | 2016-08-22 05:40 | DISCHARGE SUMMARY ---
ADMISSION DATE: 08/08/2016 DISCHARGE DATE: 08/21/2016 PHYSICIAN: Dr. Lopez. REASON FOR ADMISSION: He was admitted to the hospitalist service with abdominal pain, nausea, vomiting and chronic diarrhea. HISTORY: This is a 36-year-old male admitted back on 07/05/2016 with the exact complaints, history of ulcerative colitis, proctitis, status post total colectomy, and ileal rectal anastomosis. Patient presented to the ER complaining of constant sharp shooting and throbbing pain that has been going on for the past couple of days in his abdomen. He says that he has approximately 5 daily episodes of emesis on the day of admission. He denied any kind of coffee ground, isaac bleeding or melena. Denies anything that seems to alleviate or precipitate the abdominal pain. He does get nausea after eating. He feels the Dilaudid no longer helps, this is when he insisted on going to the emergency room. He did go on at length to explain that Dilaudid was not optimal for ulcerative colitis, for bowel movement and for diminishing nausea, but was insistent. He felt that 2 mg treats it better than the 1 mg, and really would take 2 mg every hour. He was on 1 mg q.3 hours and really requesting more. Although a good deal portion of the day, he was sleeping. I had many isaac discussions about the direction we were going with the opioid. Dr. Lopez was involved. I put him on a treatment for ulcerative colitis and we gave him some Zofran for the nausea. I cut down his Dilaudid. At one point, he lost his IV, but continued IV fluid and put IV back in. We changed him to p.o. [place] which he was not happy with. After 48- 72 hours, he seemed to do better and seemed to be functioning better and eating better. He still had some nausea but eventually he felt like he wanted to go home on 08/21/2015. He has been on different medications in the past and when we could afford, we decided to let him go home today on [place] 10 q.6 hours p.r.n. I will give him 120. He will need to get followup with that with his primary care Dr. Lopez. We had a long counseling about how that needs to try and cut that down over the next couple of months. Klonopin 0.5 mg b.i.d. p.r.n. [place] 1 p.o. 4 times a day p.r.n. folic acid 1 mg a day. Ativan he was getting IV p.r.n. agitation. suppository which is mesalamine 1000 mg per rectum at bedtime. I started him on Reglan which seemed to help 10 mg p.o. before meals and at bedtime, cut that down to 5 mg p.o. daily before meals and at bedtime. Sulfadiazine 500 mg p.o. q.8 hours, and he is on his Effexor 150 mg b.i.d. We encouraged him to increase his activity and exercise. Encouraged him to try and continue his p.o. nutrition.
== END 2016-08-21 14:10 | disposition home or self-care (01) | DRG 386 ==
LOC: ED 23:06 → EEVIPCON 08-08 04:50 → OBSVTOIN 08-08 04:50 → 4N 08-08 04:50
PROVIDERS: ATTEND Emergency Medicine
DX: K51.20 Ulcerative (chronic) proctitis without complications (principal); F11.23 Opioid dependence with withdrawal; K75.9 Inflammatory liver disease, unspecified; F32.9 Major depressive disorder, single episode, unspecified; F41.9 Anxiety disorder, unspecified; G89.29 Other chronic pain; Z90.49 Acquired absence of other specified parts of digestive tract; Z82.49 Family history of ischemic heart disease and other diseases of the circulatory system; Z79.899 Other long term (current) drug therapy
CPT/HCPCS: 36415; 74020; 74177; 80048; 80053; 81001; 82150; 83690; 83735; 85025; 96374; 96375; J1170; J2060; J2550; J7030; Q9967

== ENCOUNTER 2016-08-27 18:36 | Emergency (ER) ==
--- NOTE | 2016-08-27 19:12 | PROVIDER DOCUMENTATION ---
HPI-General Adult - General Chief Complaint: Abdominal Pain Stated Complaint: ABD PAIN, N/V/D Time Seen by Provider: 08/27/16 18:40 Source: patient Allergies/Adverse Reactions: Patient Allergies Allergy/AdvReac Type Severity Reaction Status Date / Time tramadol HCl * [From Ultram] Allergy Severe RASH Verified 08/27/16 20:20 morphine Allergy Intermediate ABDOMINAL Verified 08/27/16 20:20 PAIN dicyclomine HCl * Allergy Mild RASH Verified 08/27/16 20:20 [From Bentyl] ketorolac tromethamine * Allergy Mild ABDOMINAL Verified 08/27/16 20:20 [From Toradol] PAIN nalbuphine HCl * Allergy Mild RASH Verified 08/27/16 20:20 [From Nubain] Home Medications: Diphenoxylate/Atropine [Lomotil] 1 each PO 4XDAY PRN PRN 05/07/16 Venlafaxine E.r. [Effexor Xr] 150 mg PO BID 08/07/16 Clonazepam [Klonopin] 2 mg PO BID 08/27/16 - History of Present Illness -Gen Adult Nature of Presenting Problems: Pt. is 36 yom that presents with c/o stabbing abd pain with N/V that began two days ago. Pt. reports a long Hx of abd issues with UC and multiple surgeries. Pt. denies any other symptoms at this time. Location of Pain/Injury: reports: abdomen. denies: head, face, mouth, neck, chest, upper extremity, hand(s), back, pelvis, genitalia, lower extremity, feet , upper body, lower body, generalized Pain Radiation: reports: no radiation Quality of Pain: reports: sharp, stabbing. denies: aching, burning, cramping, dull, fullness, indigestion, pressure, tearing, throbbing, tightness Severity: reports: moderate. denies: mild, severe Onset/Duration: reports: gradual, 2 days ago Timing: reports: still present, constant. denies: improving, gone now, resolved prior to arrival, intermittent, changing over time, getting worse Context/Activities at Onset: reports: none. denies: recent emotional stress, recent physical stress, recent trauma history, possible bad food, cold exposure , out of country travel Modifying Factors: improves with: nothing Associated Symptoms: reports: nausea, vomiting. denies: anxiety, arm pain, back /neck pain, chest pain, constipation, cough, diaphoresis, diarrhea, dizziness, EENT symptoms, fatigue, fever/chills, genitourinary problems, headaches, heartburn, joint pain, loss of appetite, malaise, muscle aches, sinus congestion /drainage, rash, seizure, shortness of breath, sensory/motor loss, pain with inspiration, swelling/mass in abdomen, syncope, weakness, trouble walking Similar Symptoms Previously?: Yes Recently seen or treated by another doctor?: Yes Review of Systems - Adult - REVIEW OF SYSTEMS - ADULT Constitutional: reports: see HPI. denies: chills, fever, fatique Eyes: reports: see HPI. denies: discharge, blurred vision, eye pain Ears, Nose, Mouth & Throat: reports: see HPI. denies: ear discharge, ear pain, nose pain, loose teeth, mouth swelling, throat swelling Cardiovascular: reports: see HPI. denies: chest pain, orthopnea, palpitations, syncope Respiratory: reports: see HPI. denies: chronic cough, cough, dyspnea on exertion, pleurisy, shortness of breath, wheezing Gastrointestinal: reports: see HPI, abdominal pain, nausea, vomiting. denies: hematemesis, diarrhea, difficulty swallowing, frequent heartburn, rectal bleeding Genitourinary: reports: see HPI. denies: dysuria, frequency, flank pain, hematuria, incontinence Musculoskeletal: reports: see HPI. denies: bone pain, back pain, joint pain, muscle aches, neck pain Integumentary: reports: see HPI. denies: hives, hair loss, itching, rash, skin thickening Neurological: reports: see HPI. denies: ataxia, headache/migraines, numbness, seizure, tremors Psychiatric: reports: see HPI. denies: anxiety, depression, emotional problems , insomnia, panic attacks, suicidal thoughts Past History - Adult - PAST MEDICAL HISTORY-ADULT Review of Records: reports: Old Records Reviewed, Nursing Assessment Review, Medications Reviewed, Social history reviewed & non-contributory. Major Childhood Illnesses: reports: denies history Cardiovascular: reports: denies history Respiratory: reports: denies history Gastrointestinal: reports: colitis Genitourinary: reports: denies history Musculoskeletal: reports: denies history Neurological: reports: denies history Psychiatric: reports: depression Endocrine/Immune: reports: denies history Other Conditions: reports: denies history - PRIOR SURGERIES/PROCEDURES Surgical/Procedure History: reports: other (has had several GI procedures related to UC, partial colectomy) - PRIOR HOSPITALIZATIONS Prior Hospitalizations: reports: none - IMMUNIZATION STATUS Childhood Immunizations: See Nurse Assessment Flu Vaccine: See Nurse Assessment - FAMILY HISTORY Family History: reviewed, not pertinent Physical Exam-General - PHYSICAL EXAM-ADULT Initial Vital Signs Reviewed: Yes - CONSTITUTIONAL General Appearance: alert, mild distress, thin. negative: obese, anxious, lethargic, slow to respond, obtunded, combative - EYES Eyes: PERRL/EOMI, pink conjunctivae. negative: conjuctival exudate, photophobia , subconjunctival hemorrhage - HEAD, EARS, NOSE, MOUTH & THROAT HENMT: normocephalic/atraumatic, moist mucous membranes. negative: angioedema, frontal tenderness, maxillary tenderness - NECK Neck: non-tender, full range of motion, supple, normal inspection - RESPIRATORY Respiratory: lungs clear, normal breath sounds. negative: crackles, rales, rhonchi, stridor, wheezing - CARDIOVASCULAR Cardiovascular: normal peripheral pulses, regular rate, rhythm, no JVD, no murmur. negative: extra beats, friction rub, irregularly irregular - CHEST (BREASTS) Chest/Breast: deferred - GASTROINTESTINAL (ABDOMEN) Abdominal Exam: tenderness - GENITOURINARY Male Genitalia: deferred Rectal Exam: deferred Hemoccult Exam: deferred - LYMPHATIC Lymphatic: no adenopathy. negative: axilla node tender, cervical node tenderness - MUSCULOSKELETAL Back Exam: normal inspection, no CVA tenderness, no vertebral tenderness. negative: ecchymosis, swelling, vertebral tenderness Extremity: normal range of motion, non-tender, normal gait, normal inspection. negative: deformity, erythema, inflammation, swelling, tenderness Peripheral Pulses: radial (R): 2+, radial (L): 2+ - SKIN Integumentary: normal color, normal turgor, warm/dry. negative: cyanosis, diaphoresis, ecchymosis, erythema, jaundice, mottled, pallor, petechiae, purpura , rash, swelling, tenderness - NEUROLOGIC Neurologic: grossly normal, no motor/sensory deficits. negative: aphasia, facial droop, focal weakness, motor weakness, sensory deficit - PSYCHIATRIC Psych/Mental Status: normal mood/affect, normal thought content, normal thought process, oriented x 3. negative: anxious, paranoid, tearful Progress - PLAN OF CARE/RESULTS Progress/Plan/Lab Results: Discussed results and plan of care with patient. Patient agrees with plan and verbalizes understanding. Vital Signs Temp Pulse Resp BP Pulse Ox 08/27/16 18:45 97.8 F 105 H 18 117/85 100 tramadol HCl * [From Ultram] Allergy (Severe, Verified 08/27/16 20:20) RASH morphine Allergy (Intermediate, Verified 08/27/16 20:20) ABDOMINAL PAIN MUSCEL SPASEMS dicyclomine HCl * [From Bentyl] Allergy (Mild, Verified 08/27/16 20:20) RASH ketorolac tromethamine * [From Toradol] Allergy (Mild, Verified 08/27/16 20:20) ABDOMINAL PAIN MUSEL SPASEMS nalbuphine HCl * [From Nubain] Allergy (Mild, Verified 08/27/16 20:20) RASH Diphenoxylate/Atropine [Lomotil] 1 each PO 4XDAY PRN PRN 05/07/16 Venlafaxine E.r. [Effexor Xr] 150 mg PO BID 08/07/16 Clonazepam [Klonopin] 2 mg PO BID 08/27/16 Laboratory 08/27/16 08/27/16 20:13 20:13 WBC 6.54 RBC 4.72 Hgb 13.8 L Hct 41.0 L MCV 86.9 MCH 29.2 MCHC 33.7 RDW Std Deviation 12.2 Plt Count 383 MPV 9.7 Immature Gran % (Auto) 0.0 Neut % (Auto) 65.7 Lymph % (Auto) 18.7 L Casey % (Auto) 9.3 Eos % (Auto) 6.0 Baso % (Auto) 0.3 Immature Gran # (Auto) 0.00 Neut # (Auto) 4.30 Lymph # (Auto) 1.22 Casey # (Auto) 0.61 H Eos # (Auto) 0.39 Baso # (Auto) 0.02 ESR 4 Sodium 141 Potassium 4.5 Chloride 99 Carbon Dioxide 24 L Anion Gap 18 BUN 14 Creatinine 1.4 H Estimated GFR/1.73 m2 > 60 BUN/Creatinine Ratio 10 Glucose 80 Calculated Osmolality 281 Calcium 9.4 Total Bilirubin 0.63 AST 31 ALT 36 Alkaline Phosphatase 63 C-Reactive Prot, Quant 1.97 Total Protein 7.5 Albumin 4.5 Globulin 3.0 Albumin/Globulin Ratio 1.5 Lipase 36 Orders Category Date Time Status FLAT/UPRIGHT ABD/1 VIEW CHEST [RAD] Stat Exams 08/27/16 19:01 Taken CBC WITH ELECTRONIC DIFF [HEME] Stat Lab 08/27/16 20:13 Completed CMP [COMPREHENSIVE METABOLIC PANEL] [CHEM] Stat Lab 08/27/16 20:13 Completed CRP [C REACTIVE PROT QUANT] [CHEM] Stat Lab 08/27/16 20:13 Completed LIPASE [CHEM] Stat Lab 08/27/16 20:13 Completed SED RATE [HEME] Stat Lab 08/27/16 20:13 Completed Hydromorphone [Dilaudid] Med 08/27/16 21:40 Discontinued 1 mg IV NOW ONE Promethazine [Phenergan] Med 08/27/16 21:39 Discontinued 12.5 mg IV NOW ONE Sodium Chloride 0.9% Med 08/27/16 21:39 Discontinued 10 ml INJ NOW ONE Laboratory Tests 08/27/16 08/27/16 20:13 20:13 WBC 6.54 RBC 4.72 Hgb 13.8 L Hct 41.0 L MCV 86.9 MCH 29.2 MCHC 33.7 RDW Std Deviation 12.2 Plt Count 383 MPV 9.7 Immature Gran % (Auto) 0.0 Neut % (Auto) 65.7 Lymph % (Auto) 18.7 L Casey % (Auto) 9.3 Eos % (Auto) 6.0 Baso % (Auto) 0.3 Immature Gran # (Auto) 0.00 Neut # (Auto) 4.30 Lymph # (Auto) 1.22 Casey # (Auto) 0.61 H Eos # (Auto) 0.39 Baso # (Auto) 0.02 ESR 4 Sodium 141 Potassium 4.5 Chloride 99 Carbon Dioxide 24 L Anion Gap 18 BUN 14 Creatinine 1.4 H Estimated GFR/1.73 m2 > 60 BUN/Creatinine Ratio 10 Glucose 80 Calculated Osmolality 281 Calcium 9.4 Total Bilirubin 0.63 AST 31 ALT 36 Alkaline Phosphatase 63 C-Reactive Prot, Quant 1.97 Total Protein 7.5 Albumin 4.5 Globulin 3.0 Albumin/Globulin Ratio 1.5 Lipase 36 - XRAY 1 XRAY Study: Abdomen XRAY Interpretation: Prominant small bowel loops, unchanged from prior ([place]) Departure - Departure Time of Disposition Order: 22:37 DIAGNOSIS: Abdominal pain in male Disposition: HOME 01 Certified Medical Emergency: Emergent Condition: Stable Additional Instructions: Follow up with primary care physician Follow up with residential tech Return to ED for any concerns or worsening of symptoms ED Follow Up Instructions: You have been treated by a care provider in the Emergency Department. These instructions are being provided to you so you can have an understanding of how to care for yourself upon discharge. Upon discharge from the Emergency Department, you are responsible for making arrangements for follow-up care by a physician of your choice. Take all prescribed medications as directed. Return to the Emergency Department immediately for any new or worsening symptoms. You may call the Physician Referral phone number at [phone] to obtain a list of Physicians who are taking new patients. Attestation - Physician/ Mid-level Attestation Patient care was provided by Mid-level provider (CONCESSIONS MANAGER/PA):: Yes Mid-level provider:: Nolan Sanchez Mid-level documentation review:: The Mid-level provider documentation, treatment plan and medical decision making was reviewed by the physician who agrees with all treatment and medical decision making by the P.
[2016-08-27 21:05] LABS: MANUAL DIFF NEEDED? NO
[2016-08-27 21:10] LABS: BASO% 0.3 % (0.0-0.8); EOS# 0.39 X1000 (0.0-0.7); HEMOGLOBIN 13.8 g/dL (14.0-18.0); LYMPH# 1.22 X1000 (1.2-3.4); LYMPH% 18.7 % (20.5-51.1); MCH 29.2 PG (27-31); MCHC 33.7 g/dL (33-37); MCV 86.9 FL (81-99); MONO# 0.61 X1000 (0.11-0.59); MONO% 9.3 % (1.7-9.3); MPV 9.7 FL (7.4-10.4); NEUT% 65.7 % (42.2-75.2); PLT 383 X1000 (130-400); RBC 4.72 XMIL (4.7-6.1)
[2016-08-27] MEDS ORDERED: SODIUM CHLORIDE 0.9% INJ ONE ×2 (21:39→22:47)
[2016-08-27] MEDS ORDERED: PHENERGAN IV ONE ×2 (21:39→22:47)
[2016-08-27 21:40] LABS: AGAP 18; ALBUMIN 4.5 g/dL (3.5-5.0); ALKALINE PHOSPHATASE 63 U/L (32-122); BUN 14 mg/dL (8-22); CALCIUM 9.4 mg/dL (8.8-10.2); CHLORIDE 99 mmol/L (98-107); COSMO 281; GOT 31 U/L (10-34); GPT 36 U/L (10-44); LIPASE 36 U/L (13-60); POTASSIUM 4.5 mmol/L (3.5-5.1); SODIUM 141 mmol/L (136-145); TCO2 24 mmol/L (25-35); TOTAL BILIRUBIN 0.63 mg/dL (0.20-1.00); TOTAL PROTEIN 7.5 g/dL (6.3-8.3)
[2016-08-27] MEDS ORDERED: DILAUDID IV ONE (21:40)
[2016-08-27 22:18] LABS: SED RATE 4 mm/hr (0-15)
[2016-08-27 23:06] VITALS: BP 144/94
--- NOTE | 2016-08-28 08:14 | Diag Imaging Result Document ---
PROCEDURE NAME: FLAT/UPRIGHT ABD/1 VIEW CHEST - 08/27/2016 FLAT AND UPRIGHT ABDOMEN: FINDINGS: There are staple lines in the lower pelvis. There is some colonic gas. The stomach is not distended. The appearance is similar to that on 08/08/2016. IMPRESSION: Possible ileus. PA AND LATERAL CHEST: FINDINGS: Normal chest.
== END 2016-08-27 23:07 | disposition home or self-care (01) ==
LOC: ED 18:36
DX: R10.9 Unspecified abdominal pain (principal); Z79.899 Other long term (current) drug therapy; R11.2 Nausea with vomiting, unspecified; F32.9 Major depressive disorder, single episode, unspecified; Z90.49 Acquired absence of other specified parts of digestive tract
CPT/HCPCS: 36415; 74022; 80053; 83690; 85025; 85651; 86140; 96374; 96375; 96376; J1170; J2550

== ENCOUNTER 2016-10-13 21:38 | Emergency (ER) ==
[2016-10-13] MEDS ORDERED: PHENERGAN IV ONE (22:18)
[2016-10-13] MEDS ORDERED: SODIUM CHLORIDE 0.9% INJ ONE (22:18)
[2016-10-13] MEDS ORDERED: OFIRMEV 1000 MG/ISOTONIC SOLN 100 ML IV ONE (22:19)
--- NOTE | 2016-10-13 22:30 | PROVIDER DOCUMENTATION ---
HPI-Abdominal Pain/GI Problem <Elma Noriega - Last Filed: 10/13/16 23:36> - General Source: patient - History of Present Illness-ABD Nature of Presenting Problems: Pt is a 36 yom who presents to ER with CC of an Ulcerative Colitis flare up and N/V since the . Pt is a known drug seeker and was seen by his GI doctor, Dr. Keating, and had his pain rx refilled. Pt reports that since Thursday, he has had uncontrollable N/V and constipation. Pt reports that when he talked to Dr. Keating, he was told that he might need to have the rest of his colon removed. Pt has had 4+ GI surgeries in the past. Abdominal Pain Onset Location: reports: generalized abdomen Pain Radiation: reports: no radiation Quality of Pain: reports: cramping Severity in ED: reports: moderate Onset/Duration: reports: 4 days ago Timing: reports: still present Associated Symptoms: reports: constipation, loss of appetite, nausea, vomiting. denies: cough, diarrhea, EENT symptoms, fatigue, fever/chills, genitourinary problems, headaches, heartburn, muscle aches, shortness of breath, weakness, trouble walking Last BM: unsure Dark Stools Present?: reports: none noticed Rectal Bleeding: reports: none Rectal Pain: reports: none <Bj Colon - Last Filed: 10/13/16 23:38> - General Chief Complaint: Abdominal Pain Stated Complaint: ABD PAIN, VOMITING BLOOD Time Seen by Provider: 10/13/16 22:05 Allergies/Adverse Reactions: Patient Allergies Allergy/AdvReac Type Severity Reaction Status Date / Time tramadol HCl * [From Ultram] Allergy Severe RASH Verified 10/13/16 22:16 morphine Allergy Intermediate ABDOMINAL Verified 10/13/16 22:16 PAIN dicyclomine HCl * Allergy Mild RASH Verified 10/13/16 22:16 [From Bentyl] ketorolac tromethamine * Allergy Mild ABDOMINAL Verified 10/13/16 22:16 [From Toradol] PAIN nalbuphine HCl * Allergy Mild RASH Verified 10/13/16 22:16 [From Nubain] Home Medications: Home Medication List Medication Instructions Recorded Confirmed Last Taken Type Diphenoxylate/Atropine [Lomotil] 1 each PO 4XDAY PRN PRN 05/07/16 10/13/1610/13 History Clonazepam [Klonopin] 1 mg PO BID PRN #30 tablet 09/25/16 10/13/16 10/13/16 Rx Venlafaxine E.r. [Effexor Xr] 150 mg PO BID #60 capsule 09/25/16 10/13/16 Rx Review of Systems - Adult - REVIEW OF SYSTEMS - ADULT Constitutional: denies: chills, fever, fatique, night sweats Eyes: reports: no symptoms reported Ears, Nose, Mouth & Throat: reports: no symptoms reported Cardiovascular: denies: chest pain, edema, heart murmur, irregular heart rate, orthopnea, palpitations, poor circulation, PND, syncope Respiratory: denies: chronic cough, cough, dyspnea on exertion, excessive sputum production, hemoptysis, pleurisy, shortness of breath, wheezing Gastrointestinal: reports: abdominal pain, constipation, nausea, poor appetite, vomiting. denies: hematemesis, diarrhea, difficulty swallowing, frequent heartburn, rectal bleeding Genitourinary: denies: dysuria, discharge, frequency, flank pain, frequent UTI's , hematuria, hesitency, incontinence, urinary retention, urgency Musculoskeletal: reports: no symptoms reported Integumentary: reports: no symptoms reported Neurological: reports: no symptoms reported Psychiatric: reports: no symptoms reported Endocrine: reports: no symptoms reported Hematologic/Lymphatic: reports: no symptoms reported Allergic/Immunologic: reports: no symptoms reported All Other Systems: Reviewed and Negative <Bj Colon - Last Filed: 10/13/16 23:38> Past History - Adult - PAST MEDICAL HISTORY-ADULT Review of Records: reports: Nursing Assessment Review, Medications Reviewed Gastrointestinal: reports: colitis, other (chronic abdominal pain) Psychiatric: reports: depression - PRIOR SURGERIES/PROCEDURES Surgical/Procedure History: reports: bowel surgery (colon resection) - IMMUNIZATION STATUS Childhood Immunizations: See Nurse Assessment Flu Vaccine: See Nurse Assessment <Bj Colon - Last Filed: 10/13/16 23:38> Physical Exam-General - PHYSICAL EXAM-ADULT Initial Vital Signs Reviewed: Yes - CONSTITUTIONAL General Appearance: appears well, alert, mild distress, lethargic. negative: slow to respond, obtunded, combative - RESPIRATORY Respiratory: chest non-tender, lungs clear, normal breath sounds. negative: respiratory distress, decreased breath sounds, accessory muscle use, wheezing - CARDIOVASCULAR Cardiovascular: normal peripheral pulses, regular rate, rhythm. negative: bradycardia, tachycardia, irregularly irregular - GASTROINTESTINAL (ABDOMEN) Abdominal Exam: normal bowel sounds, soft, tenderness (generalized). negative: non tender, abnormal bowel sounds, distended, mass - SKIN Integumentary: normal color, normal turgor, warm/dry. negative: abrasion(s), diaphoresis, ecchymosis, embolic lesions, laceration(s), swelling, tenderness, warm - NEUROLOGIC Neurologic: grossly normal, no motor/sensory deficits - PSYCHIATRIC Psych/Mental Status: normal mood/affect, normal thought content, normal thought process, oriented x 3 <Bj Colon - Last Filed: 10/13/16 23:38> Progress - PLAN OF CARE/RESULTS Progress/Plan/Lab Results: Vital Signs Temp Pulse Resp BP Pulse Ox 10/13/16 21:46 97.5 F L 120 H 14 138/78 100 tramadol HCl * [From Ultram] Allergy (Severe, Verified 10/13/16 22:16) RASH morphine Allergy (Intermediate, Verified 10/13/16 22:16) ABDOMINAL PAIN MUSCEL SPASEMS dicyclomine HCl * [From Bentyl] Allergy (Mild, Verified 10/13/16 22:16) RASH ketorolac tromethamine * [From Toradol] Allergy (Mild, Verified 10/13/16 22:16) ABDOMINAL PAIN MUSEL SPASEMS nalbuphine HCl * [From Nubain] Allergy (Mild, Verified 10/13/16 22:16) RASH Diphenoxylate/Atropine [Lomotil] 1 each PO 4XDAY PRN PRN 05/07/16 Clonazepam [Klonopin] 1 mg PO BID PRN #30 tablet 09/25/16 Venlafaxine E.r. [Effexor Xr] 150 mg PO BID #60 capsule 09/25/16 Dietary Diet NPO Start ThuOct 13 2206 Laboratory 10/13/16 10/13/16 22:25 22:25 WBC 5.35 RBC 4.50 L Hgb 13.5 L Hct 40.4 L MCV 89.8 MCH 30.0 MCHC 33.4 RDW Std Deviation 13.3 Plt Count 332 MPV 9.0 Immature Gran % (Auto) 0.0 Neut % (Auto) 53.8 Lymph % (Auto) 30.3 Metcalfe % (Auto) 11.8 H Eos % (Auto) 3.9 Baso % (Auto) 0.2 Immature Gran # (Auto) 0.00 Neut # (Auto) 2.88 Lymph # (Auto) 1.62 [place]fe # (Auto) 0.63 H Eos # (Auto) 0.21 Baso # (Auto) 0.01 Sodium 142 Potassium 3.7 Chloride 100 Carbon Dioxide 29 Anion Gap 13 BUN 12 Creatinine 1.2 Estimated GFR/1.73 m2 > 60 BUN/Creatinine Ratio 10 Glucose 103 Calculated Osmolality 283 Calcium 9.1 Total Bilirubin 0.30 AST 22 ALT 13 Alkaline Phosphatase 51 C-Reactive Prot, Quant 0.48 Total Protein 6.7 Albumin 3.7 Globulin 3.0 Albumin/Globulin Ratio 1.2 Amylase 190 Lipase 38 Orders Category Date Time Status Saline Loc DIRECTED Care 10/13/16 22:07 Active NPO Diet 10/13/16 22:07 Active AMYLASE [CHEM] Stat Lab 10/13/16 22:25 Completed CBC WITH ELECTRONIC DIFF [HEME] Stat Lab 10/13/16 22:25 Completed COMPREHENSIVE METABOLIC PANEL [CHEM] Stat Lab 10/13/16 22:25 Completed CRP [C REACTIVE PROT QUANT] [CHEM] Stat Lab 10/13/16 22:25 Completed LIPASE [CHEM] Stat Lab 10/13/16 22:25 Completed URINALYSIS W/POSS RFLX CULT [URINALYSIS] Stat Lab 10/13/16 22:07 Uncollected Acetaminophen [Ofirmev 1000 mg/Isotonic Soln] 100 ml Med 10/13/16 22:19 Discontinued IV NOW Promethazine [Phenergan] Med 10/13/16 22:18 Discontinued 12.5 mg IV NOW ONE Sodium Chloride 0.9% Med 10/13/16 22:18 Discontinued 10 ml INJ NOW ONE <Elma Noriega - Last Filed: 10/13/16 23:36> - PLAN OF CARE/RESULTS Progress/Plan/Lab Results: Vital Signs - 24 hr 10/13/16 21:46 Temperature 97.5 F L Pulse Rate 120 H Respiratory 14 Rate Blood Pressure 138/78 O2 Sat by Pulse 100 Oximetry Orders Category Date Time Status Saline Loc DIRECTED Care 10/13/16 22:07 Active NPO Diet 10/13/16 22:07 Active AMYLASE [CHEM] Stat Lab 10/13/16 22:25 Completed CBC WITH ELECTRONIC DIFF [HEME] Stat Lab 10/13/16 22:25 Completed COMPREHENSIVE METABOLIC PANEL [CHEM] Stat Lab 10/13/16 22:25 Completed CRP [C REACTIVE PROT QUANT] [CHEM] Stat Lab 10/13/16 22:25 Completed LIPASE [CHEM] Stat Lab 10/13/16 22:25 Completed URINALYSIS W/POSS RFLX CULT [URINALYSIS] Stat Lab 10/13/16 22:07 Uncollected Acetaminophen [Ofirmev 1000 mg/Isotonic Soln] 100 ml Med 10/13/16 22:19 Discontinued IV NOW Promethazine [Phenergan] Med 10/13/16 22:18 Discontinued 12.5 mg IV NOW ONE Sodium Chloride 0.9% Med 10/13/16 22:18 Discontinued 10 ml INJ NOW ONE Laboratory Tests 10/13/16 10/13/16 22:25 22:25 WBC 5.35 RBC 4.50 L Hgb 13.5 L Hct 40.4 L MCV 89.8 MCH 30.0 MCHC 33.4 RDW Std Deviation 13.3 Plt Count 332 MPV 9.0 Immature Gran % (Auto) 0.0 Neut % (Auto) 53.8 Lymph % (Auto) 30.3 Metcalfe % (Auto) 11.8 H Eos % (Auto) 3.9 Baso % (Auto) 0.2 Immature Gran # (Auto) 0.00 Neut # (Auto) 2.88 Lymph # (Auto) 1.62 [place]fe # (Auto) 0.63 H Eos # (Auto) 0.21 Baso # (Auto) 0.01 Sodium 142 Potassium 3.7 Chloride 100 Carbon Dioxide 29 Anion Gap 13 BUN 12 Creatinine 1.2 Estimated GFR/1.73 m2 > 60 BUN/Creatinine Ratio 10 Glucose 103 Calculated Osmolality 283 Calcium 9.1 Total Bilirubin 0.30 AST 22 ALT 13 Alkaline Phosphatase 51 C-Reactive Prot, Quant 0.48 Total Protein 6.7 Albumin 3.7 Globulin 3.0 Albumin/Globulin Ratio 1.2 Amylase 190 Lipase 38 <Bj Colon - Last Filed: 10/13/16 23:38> Departure - Departure Time of Disposition Order: 23:36 Certified Medical Emergency: Emergent <Elma Noriega - Last Filed: 10/13/16 23:36> - Departure Time of Disposition Order: 23:37 Certified Medical Emergency: Emergent <Bj Colon - Last Filed: 10/13/16 23:38> - Departure DIAGNOSIS: Chronic abdominal pain Disposition: HOME 01 Condition: Stable Additional Instructions: Follow up with your GI physician tomorrow ED Follow Up Instructions: You have been treated by a care provider in the Emergency Department. These instructions are being provided to you so you can have an understanding of how to care for yourself upon discharge. Upon discharge from the Emergency Department, you are responsible for making arrangements for follow-up care by a physician of your choice. Take all prescribed medications as directed. Return to the Emergency Department immediately for any new or worsening symptoms. You may call the Physician Referral phone number at [phone] to obtain a list of Physicians who are taking new patients. Referrals: None,PCP [Primary Care Provider] - Attestation - Scribe Verification/Attestation Scribe:: Bj Colon Acting as Scribe for:: Elma Noriega Scribe documention review:: This chart was documented by a scribe and accurately reflects the service the provider performed and the decisions made by the provider. <Bj Colon - Last Filed: 10/13/16 23:38> Physician Attestation
[2016-10-13 22:36] LABS: MANUAL DIFF NEEDED? NO
[2016-10-13 22:41] LABS: BASO% 0.2 % (0.0-0.8); EOS# 0.21 X1000 (0.0-0.7); EOS% 3.9 % (0.0-10.0); HEMATOCRIT 40.4 % (42.0-52.0); HEMOGLOBIN 13.5 g/dL (14.0-18.0); LYMPH# 1.62 X1000 (1.2-3.4); LYMPH% 30.3 % (20.5-51.1); MCHC 33.4 g/dL (33-37); MCV 89.8 FL (81-99); MONO# 0.63 X1000 (0.11-0.59); MONO% 11.8 % (1.7-9.3); NEUT% 53.8 % (42.2-75.2); PLT 332 X1000 (130-400)
[2016-10-13 22:58] LABS: AGAP 13; ALBUMIN 3.7 g/dL (3.5-5.0); ALKALINE PHOSPHATASE 51 U/L (32-122); AMYLASE 190 U/L (20-200); BUN 12 mg/dL (8-22); CALCIUM 9.1 mg/dL (8.8-10.2); CHLORIDE 100 mmol/L (98-107); COSMO 283; GOT 22 U/L (10-34); GPT 13 U/L (10-44); LIPASE 38 U/L (13-60); POTASSIUM 3.7 mmol/L (3.5-5.1); SODIUM 142 mmol/L (136-145); TCO2 29 mmol/L (25-35); TOTAL PROTEIN 6.7 g/dL (6.3-8.3)
[2016-10-14 00:04] VITALS: BP 152/85
[2016-10-14 00:16] LABS: URINE CULTURE NEEDED? NO; URINE SOURCE CLEAN CATCH
[2016-10-14 00:27] LABS: BILIRUBIN URINE NEGATIVE (NEGATIVE); BLOOD URINE NEGATIVE (NEGATIVE); COLOR YELLOW; GLUCOSE URINE NEGATIVE (NEGATIVE); LEUKOCYTES URINE NEGATIVE (NEGATIVE); NITRITE URINE NEGATIVE (NEGATIVE); PH URINE 6.5; PROTEIN URINE TRACE mg/dL (NEGATIVE); SP GRAVITY URINE 1.032; TURBIDITY URINE CLEAR (CLEAR); URINE MICRO REVIEW NEEDED? YES; UROBILINOGEN URINE 2 mg/dL (NORMAL)
[2016-10-14 00:33] LABS: UR EPITHELIAL CELLS <10 /HPF (<10); URINE BACTERIA NEGATIVE /HPF; URINE RBC <10 /HPF (<10); URINE WBC <10 /HPF (<10)
[2016-10-14 00:45] LABS: URINE CRYSTALS CA OXALATE PRESENT
== END 2016-10-14 00:04 | disposition home or self-care (01) ==
LOC: ED 21:38
DX: R10.84 Generalized abdominal pain (principal); G89.29 Other chronic pain; K59.00 Constipation, unspecified; R11.2 Nausea with vomiting, unspecified; F32.9 Major depressive disorder, single episode, unspecified; Z90.49 Acquired absence of other specified parts of digestive tract; R53.83 Other fatigue; Z79.899 Other long term (current) drug therapy
CPT/HCPCS: 80053; 81001; 82150; 83690; 85025; 86140; J0131; J2550

== ENCOUNTER 2016-11-01 16:00 | Emergency (ER) ==
[2016-11-01] MEDS ORDERED: NS 1,000 ML IV ONE (16:56)
[2016-11-01] MEDS ORDERED: SODIUM CHLORIDE 0.9% INJ ONE (16:56)
[2016-11-01] MEDS ORDERED: PHENERGAN IV ONE (16:56)
[2016-11-01] MEDS ORDERED: DILAUDID IV ONE ×2 (16:56→20:45)
--- NOTE | 2016-11-01 17:03 | PROVIDER DOCUMENTATION ---
HPI-Abdominal Pain/GI Problem - General Source: patient - History of Present Illness-ABD Nature of Presenting Problems: Pt is 36 y/o M presents to the ED with abdominal pain. Pt states pain started last night. Pt states prior episodes of abdomen pain. Pt states having 4 abdominal sx and having a colostomy bag for one year. Pt states having 3/4 of his colon removed. Pt states he is flying to [place] to have another sx on Thursday. Abdominal Pain Onset Location: reports: generalized abdomen Pain Radiation: reports: no radiation Quality of Pain: reports: aching Severity in ED: reports: severe Onset/Duration: reports: last night Timing: reports: still present, intermittent Activities at Onset: reports: light activity Exposure to sick contacts?: No Modifying Factors: improves with: nothing Associated Symptoms: reports: nausea, vomiting. denies: anxiety, arm pain, back /neck pain, chest pain, constipation, cough, diaphoresis, diarrhea, dizziness, EENT symptoms, fatigue, fever/chills, genitourinary problems, headaches, heartburn, joint pain, loss of appetite, malaise, muscle aches, sinus congestion /drainage, rash, seizure, shortness of breath, sensory/motor loss, pain with inspiration, swelling/mass in abdomen, syncope, weakness, trouble walking Last BM: unsure Dark Stools Present?: reports: none noticed Rectal Bleeding: reports: none Rectal Pain: reports: none # of Vomiting Episodes: 4 Emesis Description: reports: clear Bruising or Bleeding Gums?: No Similar Symptoms Previously?: Yes Recently seen or treated by another doctor?: Yes <Thania Parks - Last Filed: 11/01/16 17:48> <Bj Colon - Last Filed: 11/01/16 20:51> - General Chief Complaint: Abdominal Pain Stated Complaint: ABD PAIN Time Seen by Provider: 11/01/16 16:29 Allergies/Adverse Reactions: Patient Allergies Allergy/AdvReac Type Severity Reaction Status Date / Time tramadol HCl * [From Ultram] Allergy Severe RASH Verified 11/01/16 16:38 morphine Allergy Intermediate ABDOMINAL Verified 11/01/16 16:38 PAIN dicyclomine HCl * Allergy Mild RASH Verified 11/01/16 16:38 [From Bentyl] ketorolac tromethamine * Allergy Mild ABDOMINAL Verified 11/01/16 16:38 [From Toradol] PAIN nalbuphine HCl * Allergy Mild RASH Verified 11/01/16 16:38 [From Nubain] Home Medications: Home Medication List Medication Instructions Recorded Confirmed Last Taken Type Diphenoxylate/Atropine [Lomotil] 1 each PO 4XDAY PRN PRN 05/07/16 11/01/1611/01 History Venlafaxine E.r. [Effexor Xr] 150 mg PO BID #60 capsule 09/25/16 11/01/16 Rx Review of Systems - Adult - REVIEW OF SYSTEMS - ADULT Constitutional: reports: no symptoms reported Eyes: reports: no symptoms reported Ears, Nose, Mouth & Throat: reports: no symptoms reported Cardiovascular: reports: irregular heart rate (tachy). denies: chest pain, heart murmur Respiratory: reports: no symptoms reported Gastrointestinal: reports: abdominal pain, nausea, vomiting. denies: diarrhea Genitourinary: reports: no symptoms reported Musculoskeletal: reports: no symptoms reported Integumentary: reports: no symptoms reported Neurological: reports: no symptoms reported Psychiatric: reports: no symptoms reported Endocrine: reports: no symptoms reported Hematologic/Lymphatic: reports: no symptoms reported Allergic/Immunologic: reports: no symptoms reported All Other Systems: Reviewed and Negative <Thania Parks - Last Filed: 11/01/16 17:48> Past History - Adult - PAST MEDICAL HISTORY-ADULT Review of Records: reports: Nursing Assessment Review, Medications Reviewed, Social history reviewed & non-contributory. Major Childhood Illnesses: reports: denies history Cardiovascular: reports: denies history Respiratory: reports: denies history Gastrointestinal: reports: colitis, other (chronic abdominal pain) Obstetrical/Gynecological: reports: denies history Genitourinary: reports: denies history Musculoskeletal: reports: denies history Neurological: reports: denies history Psychiatric: reports: depression Endocrine/Immune: reports: denies history Other Conditions: reports: denies history - PRIOR SURGERIES/PROCEDURES Surgical/Procedure History: reports: bowel surgery (colon resection) - IMMUNIZATION STATUS Childhood Immunizations: See Nurse Assessment Flu Vaccine: See Nurse Assessment - FAMILY HISTORY Family History: reviewed, not pertinent - SOCIAL HISTORY Smoking: denies Substance Use: denies Living Situation: family <Thania Parks - Last Filed: 11/01/16 17:48> Physical Exam-General - PHYSICAL EXAM-ADULT Initial Vital Signs Reviewed: Yes - CONSTITUTIONAL General Appearance: appears well, alert, moderate distress - EYES Eyes: PERRL/EOMI, pink conjunctivae, fundi clear, no AV nicking - HEAD, EARS, NOSE, MOUTH & THROAT HENMT: normocephalic/atraumatic, moist mucous membranes, normal ENT inspection, TMs normal, pharynx normal - NECK Neck: non-tender, full range of motion, supple, normal inspection - RESPIRATORY Respiratory: chest non-tender, lungs clear, normal breath sounds, no pleuratic chest pain, no respiratory distress, no accessory muscle use - CARDIOVASCULAR Cardiovascular: normal peripheral pulses, no edema, no gallop, no JVD, no murmur , tachycardia - GASTROINTESTINAL (ABDOMEN) Abdominal Exam: normal bowel sounds, soft, no organomegaly, no pulsatile mass, guarding, tenderness - LYMPHATIC Lymphatic: no adenopathy - MUSCULOSKELETAL Back Exam: normal inspection, no CVA tenderness, no vertebral tenderness Extremity: normal range of motion, non-tender, normal gait, normal inspection, no pedal edema, no calf tenderness, normal capillary refill - SKIN Integumentary: normal color, normal turgor, warm/dry - NEUROLOGIC Neurologic: grossly normal - PSYCHIATRIC Psych/Mental Status: normal mood/affect, oriented x 3 <Thania Parks - Last Filed: 11/01/16 17:48> Progress - PLAN OF CARE/RESULTS Progress/Plan/Lab Results: Orders Category Date Time Status Saline Loc DIRECTED Care 11/01/16 16:56 Active NPO Diet 11/01/16 16:56 Active ABDOMEN/PELVIS W/CONTRAST [CT] Stat Exams 11/01/16 16:56 Ordered FLAT/UPRIGHT ABD/1 VIEW CHEST [RAD] Stat Exams 11/01/16 16:56 Ordered AMYLASE [CHEM] Stat Lab 11/01/16 16:56 Uncollected CBC WITH ELECTRONIC DIFF [HEME] Stat Lab 11/01/16 16:56 Uncollected COMPREHENSIVE METABOLIC PANEL [CHEM] Stat Lab 11/01/16 16:56 Uncollected LIPASE [CHEM] Stat Lab 11/01/16 16:56 Uncollected PT [PROTIME WITH INR] [COAG] Stat Lab 11/01/16 17:00 Uncollected PTT [COAG] Stat Lab 11/01/16 17:00 Uncollected URINALYSIS W/POSS RFLX CULT [URINALYSIS] Stat Lab 11/01/16 16:56 Uncollected URINE DRUG SCREEN Stat Lab 11/01/16 16:56 Uncollected 0.9% Sodium Chloride Inj [Ns] 1,000 ml Med 11/01/16 16:56 Active IV 999 mls/hr Hydromorphone [Dilaudid] Med 11/01/16 16:56 Discontinued 1 mg IV NOW ONE Promethazine [Phenergan] Med 11/01/16 16:56 Discontinued 25 mg IV NOW ONE Sodium Chloride 0.9% Med 11/01/16 16:56 Discontinued 10 ml INJ NOW ONE Vital Signs - 24 hr 11/01/16 16:03 Temperature 97.8 F Pulse Rate 118 H Respiratory 20 Rate Blood Pressure 132/82 O2 Sat by Pulse 100 Oximetry - CHANGE OF SHIFT REPORT (ED Provider) Report Given and Care Transferred to:: Dr. Núñez Time of Transfer: 17:53 Items Pending: Labs, XRAY Results, CT/MRI Results <Thania Parks - Last Filed: 11/01/16 17:48> - PLAN OF CARE/RESULTS Progress/Plan/Lab Results: Vital Signs - 24 hr 11/01/16 11/01/16 16:03 20:16 Temperature 97.8 F Pulse Rate 118 H 76 Respiratory 20 18 Rate Blood Pressure 132/82 138/76 O2 Sat by Pulse 100 99 Oximetry Orders Category Date Time Status Saline Loc DIRECTED Care 11/01/16 16:56 Completed ABDOMEN/PELVIS W/CONTRAST [CT] Stat Exams 11/01/16 16:56 Taken FLAT/UPRIGHT ABD/1 VIEW CHEST [RAD] Stat Exams 11/01/16 16:56 Taken AMYLASE [CHEM] Stat Lab 11/01/16 18:07 Completed CBC WITH ELECTRONIC DIFF [HEME] Stat Lab 11/01/16 17:05 Completed COMPREHENSIVE METABOLIC PANEL [CHEM] Stat Lab 11/01/16 18:07 Completed LIPASE [CHEM] Stat Lab 11/01/16 18:07 Completed PT [PROTIME WITH INR] [COAG] Stat Lab 11/01/16 17:05 Completed PTT [COAG] Stat Lab 11/01/16 17:05 Completed 0.9% Sodium Chloride Inj [Ns] 1,000 ml Med 11/01/16 16:56 Discontinued IV 999 mls/hr Hydromorphone [Dilaudid] Med 11/01/16 16:56 Discontinued 1 mg IV NOW ONE Hydromorphone [Dilaudid] Med 11/01/16 20:45 Discontinued 1 mg IV NOW ONE Ondansetron [Zofran] Med 11/01/16 20:45 Discontinued 4 mg IV NOW ONE Promethazine [Phenergan] Med 11/01/16 16:56 Discontinued 25 mg IV NOW ONE Sodium Chloride 0.9% Med 11/01/16 16:56 Discontinued 10 ml INJ NOW ONE Laboratory Tests 11/01/16 11/01/16 11/01/16 17:05 17:05 18:07 WBC 4.41 L RBC 4.59 L Hgb 13.9 L Hct 41.3 L MCV 90.0 MCH 30.3 MCHC 33.7 RDW Std Deviation 13.2 Plt Count 371 MPV 9.2 Immature Gran % (Auto) 0.0 Neut % (Auto) 59.0 Lymph % (Auto) 24.9 [place] % (Auto) 11.1 H Eos % (Auto) 4.8 Baso % (Auto) 0.2 Immature Gran # (Auto) 0.00 Neut # (Auto) 2.60 Lymph # (Auto) 1.10 L [place] # (Auto) 0.49 Eos # (Auto) 0.21 Baso # (Auto) 0.01 PT 10.0 INR 0.94 PTT (Actin FS) 25.9 Sodium 137 Potassium 3.8 Chloride 100 Carbon Dioxide 28 Anion Gap 9 BUN 13 Creatinine 1.1 Estimated GFR/1.73 m2 > 60 BUN/Creatinine Ratio 12 Glucose 83 Calculated Osmolality 273 Calcium 8.7 L Total Bilirubin 0.56 AST 29 ALT 17 Alkaline Phosphatase 40 Total Protein 6.6 Albumin 3.5 Globulin 3.1 Albumin/Globulin Ratio 1.1 Amylase 147 Lipase 27 - CT/MRI 1 CT Study: Abdomen, Pelvis Impression: See EMR Report (Moderate bowel distention throughout the abdomen that is seen on multiple prior studies and is probably chronic and related to prior colectomy. Thickening of the wall of the colonic and rectal remnant is also seen on multiple prior studies suggesting chronic or recurrent inflammation. Essentially stable otherwise.) Comparison with other Films: no changes (Records from this facility and [facility] show that this patient has received over 40 CT scans in less than 10 years. This along with his relative young age puts him at significatnly increased risk for radiation induced fatal malignancy. Please make note of this in the pt's records and for institutional review.) CT Results: See report - CHANGE OF SHIFT REPORT (ED Provider) Report Given and Care Transferred to:: Dr. Núñez Time of Transfer: 18:17 Items Pending: Labs, XRAY Results, CT/MRI Results <Bj Colon - Last Filed: 11/01/16 20:51> Departure <Thania Parks - Last Filed: 11/01/16 17:48> - Departure Time of Disposition Order: 20:50 Certified Medical Emergency: Emergent <Bj Colon - Last Filed: 11/01/16 20:51> - Departure DIAGNOSIS: Chronic abdominal pain Disposition: HOME 01 Condition: Stable Additional Instructions: Follow up with Dr. Chirinos on Thursday ED Follow Up Instructions: You have been treated by a care provider in the Emergency Department. These instructions are being provided to you so you can have an understanding of how to care for yourself upon discharge. Upon discharge from the Emergency Department, you are responsible for making arrangements for follow-up care by a physician of your choice. Take all prescribed medications as directed. Return to the Emergency Department immediately for any new or worsening symptoms. You may call the Physician Referral phone number at [phone] to obtain a list of Physicians who are taking new patients. Referrals: None,PCP [Primary Care Provider] - Cassius Chirinos MD [STAFF PHYSICIAN] - Attestation - Scribe Verification/Attestation Scribe:: Thania Parks Acting as Scribe for:: Pal Kaur Scribe documention review:: This chart was documented by a scribe and accurately reflects the service the provider performed and the decisions made by the provider. - Scribe Verification/Attestation #2 Shift Change Time: 17:53 Scribe Name: Bj Colon Acting as Scribe for:: Daniel Núñez <Thania Parks - Last Filed: 11/01/16 17:48> - Scribe Verification/Attestation Scribe:: Bj Colon Acting as Scribe for:: Daniel Núñez Scribe documention review:: This chart was documented by a scribe and accurately reflects the service the provider performed and the decisions made by the provider. <Bj Colon - Last Filed: 11/01/16 20:51> Physician Attestation
[2016-11-01 17:21] LABS: MANUAL DIFF NEEDED? NO
[2016-11-01 17:32] LABS: BASO% 0.2 % (0.0-0.8); EOS# 0.21 X1000 (0.0-0.7); EOS% 4.8 % (0.0-10.0); HEMATOCRIT 41.3 % (42.0-52.0); HEMOGLOBIN 13.9 g/dL (14.0-18.0); LYMPH% 24.9 % (20.5-51.1); MCH 30.3 PG (27-31); MCHC 33.7 g/dL (33-37); MONO# 0.49 X1000 (0.11-0.59); MONO% 11.1 % (1.7-9.3); MPV 9.2 FL (7.4-10.4); PLT 371 X1000 (130-400); RBC 4.59 XMIL (4.7-6.1)
[2016-11-01 17:49] LABS: INR 0.94; PTT 25.9 Seconds (22.0-36.0)
[2016-11-01 18:38] LABS: AGAP 9; ALBUMIN 3.5 g/dL (3.5-5.0); ALKALINE PHOSPHATASE 40 U/L (32-122); AMYLASE 147 U/L (20-200); BUN 13 mg/dL (8-22); CALCIUM 8.7 mg/dL (8.8-10.2); CHLORIDE 100 mmol/L (98-107); COSMO 273; GOT 29 U/L (10-34); GPT 17 U/L (10-44); LIPASE 27 U/L (13-60); POTASSIUM 3.8 mmol/L (3.5-5.1); SODIUM 137 mmol/L (136-145); TCO2 28 mmol/L (25-35); TOTAL BILIRUBIN 0.56 mg/dL (0.20-1.00); TOTAL PROTEIN 6.6 g/dL (6.3-8.3)
[2016-11-01 20:16] VITALS: BP 138/76
[2016-11-01] MEDS ORDERED: ZOFRAN IV ONE (20:45)
--- NOTE | 2016-11-01 20:57 | Diag Imaging Result Document ---
PROCEDURE NAME: ABDOMEN/PELVIS W/CONTRAST - 11/01/2016 CT ABDOMEN AND PELVIS WITH IV AND ORAL CONTRAST: COMPARISON: 10/09/2016. FINDINGS: There are extensive chronic postsurgical changes related to at least a subtotal colectomy. There are several gas distended loops of bowel throughout the abdomen. Note that this is essentially stable as compared to multiple previous studies. There is probably chronic moderate distention of bowel related to the patient's prior surgical procedures. There is wall thickening involving the remnant of the distal colon and rectum. However, this too is been seen on multiple previous studies. This indicates chronic or recurrent inflammation. There is no extraluminal free gas. The liver, spleen, gallbladder, kidneys, adrenal glands, and pancreas are grossly unremarkable. The urinary bladder is distended but is unremarkable, otherwise. IMPRESSION: 1. Stable postsurgical changes related to a previous subtotal colectomy with moderately gas distended loops of bowel throughout the abdomen that has been seen on many previous studies and is probably chronic. 2. Thickening of the wall of the remnant of the distal colon and rectum indicating chronic or recurrent inflammation. This is also seen on multiple previous studies. 3. Other incidental/nonacute findings detailed above.
--- NOTE | 2016-11-01 21:09 | Diag Imaging Result Document ---
PROCEDURE NAME: FLAT/UPRIGHT ABD/1 VIEW CHEST - 11/01/2016 PLAIN RADIOGRAPH OF THE CHEST AND ABDOMEN, 3 VIEWS: COMPARISON: 10/09/2016. FINDINGS: There are nonspecific bowel gas and stool patterns. There are metallic clips projecting over the pelvis from a previous colectomy. There is nothing specific for obstruction. There is no evidence of large-volume free abdominal gas. Lungs are clear and cardiac silhouette is unremarkable. IMPRESSION: Nonspecific abdomen.
== END 2016-11-01 21:03 | disposition home or self-care (01) ==
LOC: ED 16:00
DX: R10.84 Generalized abdominal pain (principal); G89.29 Other chronic pain; R11.2 Nausea with vomiting, unspecified; R00.0 Tachycardia, unspecified; F32.9 Major depressive disorder, single episode, unspecified; Z90.49 Acquired absence of other specified parts of digestive tract; Z79.899 Other long term (current) drug therapy
CPT/HCPCS: 74022; 74177; 80053; 82150; 83690; 85025; 85610; 85730; J1170; J2405; J2550; J7030; Q9967

== ENCOUNTER 2017-02-02 03:25 | Inpatient (IN) ==
[2017-02-02] MEDS ORDERED: NS 1,000 ML IV SCH (05:13)
[2017-02-02] MEDS ORDERED: SODIUM CHLORIDE 0.9% INJ PRN (05:13)
[2017-02-02] MEDS: DILAUDID IV PRN ×3 (05:43→12:06)
--- NOTE | 2017-02-02 05:46 | HISTORY AND PHYSICAL ---
PRIMARY CARE PHYSICIAN: Dr. Oswaldo Adler. CHIEF COMPLAINT: Abdominal pain x2 days. HISTORY OF PRESENTING ILLNESS: A 37-year-old male with a history of ulcerative colitis, status post colectomy and ileoanal anastomosis. He had multiple surgeries in regards to this. Apparently has been in and out of the hospital multiple times regarding abdominal pain. The patient apparently had gone to [facility] earlier yesterday evening for abdominal pain. He had a CAT scan done and as per ER physician there, it seemed that he had an obstruction. Subsequently, patient was transferred to [facility] for further GI evaluation. At the time of my examination, he had denied any headache, fever, chills, chest pain, shortness of breath, hemoptysis, or any weight changes but complained of abdominal pain. PAST MEDICAL HISTORY: Includes ulcerative colitis and depression. PAST SURGICAL HISTORY: Multiple abdominal surgeries, colectomy, ileoanal anastomosis. ALLERGIES: To tramadol, morphine, Bentyl, Nubain, Toradol. CURRENT MEDICATIONS: As listed in the MAR. SOCIAL HISTORY: He denies any history of smoking. Admits to social alcohol use. Denies any illicit drug use. FAMILY HISTORY: No history of coronary artery disease. REVIEW OF SYSTEMS: Twelve point review of systems listed as in the HPI. Other systems negative. PHYSICAL EXAMINATION: GENERAL: Cooperative, friendly male. He is resting comfortably now. VITAL SIGNS: Vitals are not in the chart yet. HEENT: Atraumatic, normocephalic. Extraocular movements intact. PERRLA. NECK: No masses. CHEST: Clear to auscultation. CARDIOVASCULAR: Regular rate and rhythm. ABDOMEN: Soft. Diffuse tenderness. EXTREMITIES: No edema. NEUROLOGIC: He is awake, alert, oriented x3. : No bladder distention. SKIN: Warm. LABORATORIES AND STUDIES: Still pending. ASSESSMENT: A 37-year-old male with a history of ulcerative colitis and multiple abdominal surgeries including colectomy with ileoanal anastomosis. Had initially presented to [facility] with a complaint of abdominal pain. Patient had a CT scan there done and as per emergency room physician, it was noted that he an obstruction. Due to a lack of subspecialty care, he was transferred over to [facility] for further evaluation by gastroenterology. 1. Abdominal pain. 2. Suspect a bowel obstruction. 3. History of ulcerative colitis. 4. Anxiety disorder. PLAN: 1. We will admit patient to medical floor. 2. We will keep patient NPO. We will continue with supportive treatment, IV fluids, antiemetics, pain control. 3. We will consult his security incident response engineer. 4. We will put patient on DVT prophylaxis with SCDs. 5. We will continue to follow and reassess. cc: Toro Sanchez MD
[2017-02-02] MEDS: PHENERGAN IV PRN ×2 (05:50→12:06)
[2017-02-02 06:27] LABS: MANUAL DIFF NEEDED? NO
[2017-02-02 06:54] LABS: AGAP 11; BUN 10 mg/dL (8-22); CALCIUM 8.4 mg/dL (8.8-10.2); CHLORIDE 104 mmol/L (98-107); COSMO 279; POTASSIUM 3.5 mmol/L (3.5-5.1); SODIUM 141 mmol/L (136-145); TCO2 26 mmol/L (25-35)
[2017-02-02 08:18] LABS: BASO% 0.2 % (0.0-0.8); HEMATOCRIT 34.9 % (42.0-52.0); HEMOGLOBIN 11.7 g/dL (14.0-18.0); LYMPH# 1.08 X1000 (1.2-3.4); LYMPH% 26.9 % (20.5-51.1); MCH 29.6 PG (27-31); MCHC 33.5 g/dL (33-37); MCV 88.4 FL (81-99); MONO# 0.49 X1000 (0.11-0.59); MONO% 12.2 % (1.7-9.3); MPV 9.4 FL (7.4-10.4); NEUT% 55.7 % (42.2-75.2); PLT 322 X1000 (130-400); RBC 3.95 XMIL (4.7-6.1)
[2017-02-02] MEDS ORDERED: KLONOPIN PO SCH (09:00)
[2017-02-02] MEDS ORDERED: EFFEXOR XR PO SCH (09:00)
[2017-02-02 14:48] VITALS: BP 126/75
--- NOTE | 2017-02-02 16:27 | PROGRESS NOTE ---
DATE: 02/02/2017 SUBJECTIVE: Mr. Quarles came in yesterday, apparently went to [place]. They did by report there was a CT scan that we have never seen that suggested obstruction. He was complaining of abdominal pain and they wanted to transfer him here because his plant control aide is here. Dr. Lopez refused transfer but he was transferred here any ways accepted by the hospitalist. He has had numerous hospitalizations here, each time requesting a fairly high dose Dilaudid IV. He has been started on Dilaudid 1 mg q.3 hours. He has slept most of the day and I had to wake him up which time he was telling me that he is having excruciating pain in his abdomen. I discussed the case with Dr. Lopez. He has not made any of his followup appointments with Dr. Lopez for Gastroenterology, he has not pursued pain clinic. I explained that IV Dilaudid was not the treatment of choice for ulcerative colitis or for abdominal discomfort and that I did not want to continue Dilaudid. There was a lot of discussion and argument. He complained that he was going to stop it tomorrow. We have discussed the patient Dr. Lopez and I have discussed with him that I think he has a opioid addiction. He needs to get in with pain clinic. He needs to make his followup appointments with Gastroenterology. There is no sign physically or radiographically of GI obstruction or colon obstruction. PAST MEDICAL HISTORY: Ulcerative colitis. He has had multiple abdominal surgeries, colectomy ileoanal anastomosis. ALLERGIES: He states he is allergic to tramadol, morphine, Bentyl, Nubain and Toradol. EXAM: Vital signs: Today temperature 97.5 degrees, pulse 90, respirations 13, blood pressure 126/75. CVP less than 6 cm. Lungs: Clear in all lung webb. Cardiovascular: Regular rhythm, rate without murmur or S3. Abdomen: Soft. Skin: Warm and dry. Urine output 700 mL. LAB: White count 4020, hematocrit 34, platelet count 322,000. Sodium 141, potassium 3.5, chloride 104, bicarb 26, BUN 10, creatinine 1.0, calcium 8.4. ASSESSMENT AND PLAN: 1. Abdominal pain reported, sounds like cramping pain. 2. History of ulcerative colitis. No sign of obstruction. Explained that opioid medication is not indicated for gastrointestinal obstruction, gastrointestinal cramping so we will stopped his Dilaudid. Continue the IV fluids. cc: MD Toro Locke MD
--- NOTE | 2017-02-02 16:29 | DISCHARGE SUMMARY ---
ADMISSION DATE: 02/02/2017 DISCHARGE DATE: 02/02/2017 HISTORY AND HOSPITAL COURSE: He was admitted early this morning, transferred from [place]; he requested transfer from [place]. He lives in [place]. He stated did not want to go to [place], it is too crowded. He came to [place] complaining of abdominal pain for a couple of days. He has a history of ulcer colitis status post colectomy and ileoanal anastomosis. He has had multiple surgeries in regards to this by his report. Apparently he has been in and out of the hospital multiple times. He has been in this facility several times this year and each time he is in for abdominal pain and requesting IV Dilaudid. He went to [facility] earlier yesterday evening, had a CT scan, and as per ER physician it seemed that he might have an obstruction. Subsequently, patient was transferred to [facility]. They did call to request a transfer with Dr. Lopez, who refused. He has not followed up with any appointments with Dr. Lopez. He has not pursued a pain clinic. The last 2 admissions here were prolonged for IV opioid pain medication. Difficult process convincing him to come off of the medication. We have explained that opioids are not the pain medicine of choice for abdominal pain. Certainly not the drug of choice if you are considering obstruction. He had no radiographic evidence of obstruction. He had no physical signs to suggest. He slept through the night and this morning I woke him up from a fairly deep sleep, at which time he complained of abdominal pain. I explained to him we were going to need to stop the Dilaudid which we had quite a bit of discussion which I have encounter before with him. He stated that he wanted to keep it going at least until tomorrow, then he promised he would stop it tomorrow. Unfortunately, I have been through this before. Each time there is a discussion about prolonging the pain medication. I told him it was not indicated. I have also told him that I feel he has an opioid addiction and opioid dependence problem. He needs to see a pain clinic. I suggested also going to rehab. He does not feel he has a problem. He is very upset that we will not give the pain medicine. Soon after I told him that he was not going to get any more Dilaudid he wanted to go home. He was walking around and, of course, very upset. DISCHARGE MEDICATIONS: He will be discharged on his home medications. He is on Klonopin 2 mg p.o. b.i.d. He is on Effexor ER 150 mg b.i.d. He takes Lomotil sometimes 4 times a day p.r.n. DISCHARGE INSTRUCTIONS: He is to find a primary care. He is to get follow up. He is to find a pain clinic. If he wants to continue the use Dr. Lopez for GI medicine he needs to follow up in his clinic for ulcerative colitis. cc: MD Toro Locke MD
== END 2017-02-02 17:09 | disposition home or self-care (01) ==
LOC: SUATTDRO 03:25 → 3N 03:25
PROVIDERS: ADMIT Emergency Medicine; ATTEND Emergency Medicine

== ENCOUNTER 2019-06-13 16:06 | Inpatient (IN) ==
--- NOTE | 2019-06-13 16:44 | PROVIDER DOCUMENTATION ---
HPI-General Adult - General Chief Complaint: Abdominal Pain Stated Complaint: STOMACH PAIN Time Seen by Provider: 06/13/19 16:30 Source: patient Allergies/Adverse Reactions: Patient Allergies Allergy/AdvReac Type Severity Reaction Status Date / Time tramadol HCl * [From Ultram] Allergy Severe RASH Verified 06/13/19 22:06 morphine Allergy Intermediate ABDOMINAL Verified 06/13/19 22:06 PAIN dicyclomine HCl * Allergy Mild RASH Verified 06/13/19 22:06 [From Bentyl] ketorolac tromethamine * Allergy Mild ABDOMINAL Verified 06/13/19 22:06 [From Toradol] PAIN nalbuphine HCl * Allergy Mild RASH Verified 06/13/19 22:06 [From Nubain] Home Medications: Home Medication List Medication Instructions Recorded Confirmed Last Taken Type Venlafaxine E.r. [Effexor Xr] 150 mg PO BID #60 capsule 09/25/16 06/13/19 07/27/18 07:30 Rx Clonazepam 2 mg PO BID 02/02/17 06/13/19 07/27/18 07:30 History Diphenoxylate/Atropine [Lomotil] 1 each PO TID 04/10/17 06/13/19 07/27/18 07:30 History - History of Present Illness -Gen Adult Nature of Presenting Problems: This is a 39yo male who presents with CC of abdominal pain and vomiting. The patient reports that he has a history of Ulcerative colitis and feels like he is having a flare. Patient reports that his symptoms started last night. He reports excruciating pain. He denies blood in stool or vomit. Location of Pain/Injury: reports: abdomen Severity: reports: severe Onset/Duration: reports: last night Timing: reports: still present Associated Symptoms: reports: nausea, vomiting Similar Symptoms Previously?: Yes (Ulcertaive Colitis flare) Review of Systems - Adult - REVIEW OF SYSTEMS - ADULT Constitutional: denies: fever Eyes: reports: no symptoms reported Ears, Nose, Mouth & Throat: reports: no symptoms reported. denies: throat pain Cardiovascular: reports: no symptoms reported. denies: chest pain Respiratory: reports: no symptoms reported Gastrointestinal: reports: abdominal pain, nausea, vomiting. denies: rectal bleeding Genitourinary: reports: no symptoms reported. denies: flank pain Musculoskeletal: reports: no symptoms reported. denies: back pain Integumentary: reports: no symptoms reported Neurological: reports: no symptoms reported. denies: headache/migraines Psychiatric: reports: no symptoms reported Endocrine: reports: no symptoms reported Hematologic/Lymphatic: reports: no symptoms reported Allergic/Immunologic: reports: no symptoms reported Past History - Adult - PAST MEDICAL HISTORY-ADULT Review of Records: reports: Old Records Reviewed Major Childhood Illnesses: reports: denies history Cardiovascular: reports: denies history Respiratory: reports: denies history Gastrointestinal: reports: colitis, other (chronic abdominal pain) Obstetrical/Gynecological: reports: denies history Genitourinary: reports: denies history Musculoskeletal: reports: denies history Neurological: reports: denies history Psychiatric: reports: depression Endocrine/Immune: reports: denies history Other Conditions: reports: denies history - PRIOR SURGERIES/PROCEDURES Surgical/Procedure History: reports: bowel surgery (colon resection) - IMMUNIZATION STATUS Childhood Immunizations: See Nurse Assessment Flu Vaccine: See Nurse Assessment - FAMILY HISTORY Family History: reviewed, not pertinent Physical Exam-General - PHYSICAL EXAM-ADULT Initial Vital Signs Reviewed: Yes - CONSTITUTIONAL General Appearance: alert, moderate distress - EYES Eyes: negative: conjuctival exudate, photophobia, scleral icterus - HEAD, EARS, NOSE, MOUTH & THROAT HENMT: moist mucous membranes - RESPIRATORY Respiratory: normal breath sounds - CARDIOVASCULAR Cardiovascular: tachycardia - GASTROINTESTINAL (ABDOMEN) Abdominal Exam: rigid, tenderness (diffuse) - SKIN Integumentary: normal color, warm/dry, other (central old abdominal incision noted) - NEUROLOGIC Neurologic: grossly normal - PSYCHIATRIC Psych/Mental Status: normal thought content, normal thought process, anxious Progress - PLAN OF CARE/RESULTS Progress/Plan/Lab Results: Vital Signs - 8 hr 06/13/19 16:09 Temperature 97.9 F Pulse Rate 144 H Respiratory Rate 20 Blood Pressure 120/87 O2 Sat by Pulse Oximetry 98 Orders Category Date Time Status Saline Loc DIRECTED Care 06/13/19 16:11 Active NPO Diet 06/13/19 16:11 Active AMYLASE [CHEM] Stat Lab 06/13/19 16:11 Uncollected CBC WITH ELECTRONIC DIFF [HEME] Stat Lab 06/13/19 16:11 Uncollected COMPREHENSIVE METABOLIC PANEL [CHEM] Stat Lab 06/13/19 16:11 Uncollected CRP HIGH SENSITIVITY Stat Lab 06/13/19 16:31 Ordered LACTATE, PLASMA [CHEM] Stat Lab 06/13/19 16:31 Uncollected LIPASE [CHEM] Stat Lab 06/13/19 16:11 Uncollected SED RATE [HEME] Stat Lab 06/13/19 16:31 Uncollected URINALYSIS W/POSS RFLX CULT [URINALYSIS] Stat Lab 06/13/19 16:11 Uncollected Result Diagrams: 06/13/19 19:19 06/13/19 19:19 - REASSESSMENT Reassessment #1 Status: other (Mulitple attempts to obtain IV access by physician and nursing. IV was obtained on the left side and patiatn was able to recieve blood work. IV is flowing slowly, and patient was able to recieve pain medication. Patient is laying in bed and still complaining of pain shortly after IV fentynl, but does not appear in distress. Lab work without leukocytosis. CRP very mild elevation, sed rate pending. Will increase pain medication as needed.) Reassessment #2 Status: other (CT only showing possible illius without obstruction. No other significant pathology noted.) Reassessment #3 Status: other (Discussed case with GI and hospitalist team. GI recomended admission with 1 dose of steroids and IV abx. They will see the patient in the morning. patient accepted by the hospitalist team.) Departure - Departure Date of Disposition Decision: 06/14/19 Time of Disposition Decision: 02:34 DIAGNOSIS: Abdominal pain Qualifiers: Abdominal location: generalized Qualified Code(s): R10.84 - Generalized abdominal pain Ulcerative colitis Qualifiers: Ulcerative colitis location: unspecified ulcerative colitis location Digestive disease complication type: without complication Qualified Code(s): K51.90 - Ulcerative colitis, unspecified, without complications Disposition: ADMITTED INPATIENT 09 Certified Medical Emergency: Emergent Condition: Fair - Critical Care Note This patient required my direct & personal management of CC.: No Attestation - Physician/ MARCI Attestation Patient care was provided by Advanced Practice Provider:: No The physician spent face to face time with patient:: Yes Advanced Practice Provider documentation review:: Supervising physician onsite and consulted in the evaluation and care of this patient. The physician did have a face to face encounter with the patient.
[2019-06-13] MEDS ORDERED: NS 1,000 ML IV ONE (16:46)
[2019-06-13] MEDS ORDERED: FENTANYL IV ONE (17:07)
[2019-06-13] MEDS ORDERED: ZOFRAN IV ONE ×2 (17:10→21:37)
[2019-06-13 19:42] LABS: BASO# 0.01 X1000 (0.0-0.2); BASO% 0.2 % (0.0-0.8); EOS# 0.07 X1000 (0.0-0.7); EOS% 1.6 % (0.0-10.0); HEMATOCRIT 42.2 % (42.0-52.0); HEMOGLOBIN 13.7 g/dL (14.0-18.0); LYMPH# 0.82 X1000 (1.2-3.4); LYMPH% 18.7 % (20.5-51.1); MCH 28.7 PG (27-31); MCHC 32.5 g/dL (33-37); MCV 88.3 FL (81-99); MONO# 0.45 X1000 (0.11-0.59); MONO% 10.3 % (1.7-9.3); MPV 9.5 FL (7.4-10.4); NEUT# 3.03 X1000 (1.4-6.5); NEUT% 69.2 % (42.2-75.2); PLT 457 X1000 (130-400); RBC 4.78 XMIL (4.7-6.1); RDW 13.3 % (11.5-14.5); WBC 4.38 X1000 (4.8-10.8)
[2019-06-13 20:10] LABS: AGAP 16; ALB/GLOB RATIO 1.3; ALBUMIN 4.5 g/dL (3.5-5.0); ALKALINE PHOSPHATASE 46 U/L (32-122); AMYLASE 146 U/L (20-200); BUN 10 mg/dL (8-22); CALCIUM 9.6 mg/dL (8.8-10.2); CHLORIDE 98 mmol/L (98-107); COSMO 277; CREATININE 1.2 mg/dL (0.7-1.2); ESTIMATED GFR > 60; GLUCOSE 78 mg/dL (70-104); GOT 41 U/L (10-34); GPT 16 U/L (10-44); LIPASE 23 U/L (13-60); POTASSIUM 3.7 mmol/L (3.5-5.1); SODIUM 140 mmol/L (136-145); TCO2 26 mmol/L (25-35); TOTAL BILIRUBIN 0.72 mg/dL (0.20-1.00); TOTAL PROTEIN 8.1 g/dL (6.3-8.3)
[2019-06-13 20:56] LABS: SED RATE 18 mm/hr (0-15)
[2019-06-13] MEDS ORDERED: DILAUDID IV ONE ×2 (21:17→22:21)
[2019-06-13] MEDS ORDERED: PHENERGAN IM ONE (22:26)
[2019-06-14 00:22] LABS: URINE SOURCE CLEAN CATCH
[2019-06-14] MEDS ORDERED: SOLU-MEDROL IV ONE (00:22)
[2019-06-14] MEDS ORDERED: NS 1,000 ML IV ONE (00:25)
[2019-06-14] MEDS ORDERED: FLAGYL 500 MG/NS 500 MG/100 ML IVPB IV SCH (00:30)
[2019-06-14 00:44] LABS: BILIRUBIN URINE NEGATIVE (NEGATIVE); BLOOD URINE NEGATIVE (NEGATIVE); COLOR YELLOW; GLUCOSE URINE NEGATIVE (NEGATIVE); KETONE URINE TRACE mg/dL (NEGATIVE); LEUKOCYTES URINE NEGATIVE (NEGATIVE); NITRITE URINE NEGATIVE (NEGATIVE); PH URINE 6.5; PROTEIN URINE NEGATIVE (NEGATIVE); SP GRAVITY URINE 1.026; TURBIDITY URINE CLEAR (CLEAR); UROBILINOGEN URINE NORMAL (NORMAL)
[2019-06-14 00:45] LABS: UR EPITHELIAL CELLS <10 /HPF (<10); URINE BACTERIA NEGATIVE /HPF; URINE RBC <10 /HPF (<10); URINE WBC <10 /HPF (<10)
[2019-06-14 01:16] LABS: UR AMPHETAMINES QUAL NONE DETECTED (NONE DETECT); UR BARBITUATES QUAL NONE DETECTED (NONE DETECT); UR BENZODIAZEPIN QUAL NONE DETECTED (NONE DETECT); UR CANNABINOIDS QUAL NONE DETECTED (NONE DETECT); UR COCAINE QUAL NONE DETECTED (NONE DETECT); UR METHADONE QUAL NONE DETECTED (NONE DETECT); UR OPIATES QUAL NONE DETECTED (NONE DETECT); UR OXYCODONE QUAL NONE DETECTED (NONE DETECT); UR PCP QUAL NONE DETECTED (NONE DETECT)
[2019-06-14] MEDS ORDERED: CIPRO 400 MG/D5W 400 MG/200 ML IVPB IV SCH (01:45)
[2019-06-14] MEDS: NS 1,000 ML IV SCH ×3 (03:21→21:46)
[2019-06-14] MEDS: ZOFRAN IV PRN ×5 (03:22→21:50)
[2019-06-14] MEDS: DILAUDID IV PRN ×4 (03:23→21:47)
[2019-06-14] MEDS ORDERED: FLU VACCINE IM ONE (05:03)
[2019-06-14] MEDS ORDERED: DILAUDID IV ONE (05:40)
--- NOTE | 2019-06-14 06:15 | HISTORY AND PHYSICAL ---
PRIMARY CARE PHYSICIAN: None. CHIEF COMPLAINT: Abdominal pain, nausea, vomiting, and not feeling well. HISTORY OF PRESENTING ILLNESS: A 39-year-old male with a history of ulcerative colitis who has apparently been in and out of hospitals previously. Previous records shows that patient had opioid addiction. He presented to emergency department with complaint of abdominal pain. Patient states he was nauseated and vomiting, and did not feel well. The patient kept on asking for more and more pain medications, and states that the current dosage is not relieving his pain. His case apparently was discussed by ER physician with retirement manager who recommended we admit patient overnight for observation. At the time of my examination, patient continued to complain of pain. He denied any fever, chills, chest pain, or shortness of breath but complained of abdominal pain and being nauseated. PAST MEDICAL HISTORY: Ulcerative colitis. PAST SURGICAL HISTORY: Multiple abdominal surgeries. ALLERGIES: Morphine, Toradol, Bentyl, Nubain and Ultram. CURRENT MEDICATIONS: None. SOCIAL HISTORY: No history of smoking, alcohol or illicit drug use. FAMILY HISTORY: No history of coronary disease. REVIEW OF SYSTEMS: Fourteen point review of systems is as listed as in HPI. Other systems negative. PHYSICAL EXAMINATION: GENERAL: Cooperative, friendly male who is resting comfortably now. VITAL SIGNS: Temperature 97.9 degrees, pulse 86, respiration 16, and blood pressure 128/91. HEENT: Atraumatic, normocephalic. Extraocular movements intact. PERRLA. NECK: Supple. CHEST: Clear to auscultation. CARDIOVASCULAR: Regular rate and rhythm. S1, S2. ABDOMEN: Soft. Some mild tenderness. EXTREMITIES: No edema. NEUROLOGIC: He is awake, alert, and oriented x3. : No bladder distention. SKIN: Warm. LABORATORIES AND STUDIES: As per ER physician, CT of abdomen and pelvis unremarkable. Laboratories include WBC 4.38, hemoglobin 13.7, hematocrit 42.2, and platelets 457,000. Sodium 140, potassium 3.7, chloride 98, CO2 26, BUN 10, creatinine is 1.2, and glucose is 78. Official report of CT of the abdomen and pelvis pending. ASSESSMENT: A 39-year-old male with a history of ulcerative colitis and previous history of opioid addiction, had presented to the emergency department with complaint of worsening abdominal pain. He was evaluated in the emergency department. The patient kept on demanding for more and more pain medications. His case was discussed with Gastroenterology who recommended we place the patient for observation for further evaluation and management. 1. Abdominal pain. 2. Ulcerative colitis. 3. Opiate abuse. PLAN: 1. We will admit patient to medical floor. 2. Continue supportive treatment with IV fluids, antiemetics, and pain control. 3. We will consult Gastroenterology. 4. We will continue to follow and reassess. Make further recommendations based on patient's clinical course. cc: Toro Sanchez MD
--- NOTE | 2019-06-14 06:41 | Diag Imaging Result Doc PS360 ---
CT ABD/PELVIS W/IV CONT ONLY - 06/13/2019 INDICATION: Abdominal Pain COMPARISON: 07/27/2018 FINDINGS: The lung bases are clear and the heart size is normal. Stable findings of previous subtotal colectomy. Stable mild gaseous dilation of several bowel loops that is indeterminate. No free air or free fluid. No transition point. The liver, gallbladder, spleen, pancreas, adrenals, and kidneys are normal. Urinary bladder, prostate, and rectum are normal. Bones are intact and well mineralized. IMPRESSION: Nonspecific gaseous dilation of several bowel loops. No change from prior. This exam was performed using automated exposure control, adjustment of mA or kV according to patient size, and/or use of iterative reconstruction technique Electronically signed by Tanner Haque 06/14/2019 6:39 AM
[2019-06-14] MEDS: EFFEXOR XR PO SCH ×2 (08:46→21:45)
[2019-06-14] MEDS ORDERED: DILAUDID IV PRN (09:25)
[2019-06-14] MEDS ORDERED: PHENERGAN IM ONE (12:06)
--- NOTE | 2019-06-14 13:09 | GASTROENTEROLOGY CONSULTATION ---
DATE: 06/14/2019 REASON FOR CONSULT: Abdominal pain. HISTORY OF PRESENT ILLNESS: Mr. Quarles is a 39-year-old male with a history of ulcerative colitis. He presented to the emergency department yesterday with complaints of abdominal pain, nausea and vomiting, and he does not remember the exact number, but vomited many times. His emesis was green in color. The patient has denied any fevers, chills, shortness of breath. He has a history of a reverse colostomy, which was done at the [facility]. The patient had a part of his colon removed, and that was done at [place], he was not happy with the surgery and wanted to go to [facility]. Patient has the history of abusing narcotics and was demanding to have a higher does of Dilaudid, Zofran and wanted Phenergan IM. He complained that no one was willing to listen to him and understand how much he was in pain. ALLERGIES: Morphine, tramadol, Bentyl, Nubain, and Toradol PAST MEDICAL HISTORY: Ulcerative colitis. PAST SURGICAL HISTORY: Cholecystectomy, reverse colostomy, colon surgeries, and internal J pouch. HOME MEDICATIONS: Effexor 150 mg twice a day, clonazepam 2 mg twice a day, and Lomotil 1 tablet p.o. 3 times a day. SOCIAL HISTORY: The patient has denied any alcohol, smoking, or illicit drugs. He is currently living with his fiancee. He works for an [employer] and ollows a bland diet. FAMILY HISTORY: No significant GI malignancies. REVIEW OF SYSTEMS: As per HPI, otherwise 12-point review of systems is negative. PHYSICAL EXAMINATION: Vital Signs: Temperature is 97.9, pulse 73, respirations 16, blood pressure 119/74, oxygen saturation 98% on room air. The patient's weight is 156 pounds. BMI is 20.6 kg/m2. General: He is alert and oriented x3, answering questions appropriately, but emphasizing more on his pain medicine and nausea medicine, and he is in no acute distress. HEENT: Pale conjunctivae. No icterus. PERRL. Neck: Supple. Lungs: Clear to auscultation in the anterior webb. Cardiovascular: Regular rate and rhythm. Abdomen: Soft, mild tenderness, nondistended. Active bowel sounds heard in all 4 quadrants. Extremities: No clubbing, cyanosis, or edema. Pedal pulses 2+ present bilaterally. Neurologic: Alert and oriented x3. Nonfocal. Cranial nerves II through XII grossly intact. IMAGING AND LABORATORY DATA: WBCs 4.38, RBCs 4.78, hemoglobin 13.7, hematocrit 42.2, platelet count is 457,000. Sodium 140, potassium 3.7, chloride 98, carbon dioxide 26, anion gap 16, BUN is 10, creatinine is 1.2. AST 41, ALT 16, alkaline phosphatase is 46, plasma lactate 1.2. Urinalysis shows trace of ketones. CT of abdomen and pelvis showed nonspecific gaseous dilation of several bowel loops. Abdominal x-ray showed no acute disease. IMPRESSION: Abdominal pain Nausea Vomiting Ulcerative colitis PLAN: Patient is currently on IV fluids NS @ 100 mls/h. He is on antiemetic Zofran and is receiving Dilaudid for his pain. We will see him as an outpatient at our clinic after he is discharged. He is on a clear liquid diet, will advance as tolerated. We will continue to monitor the patient and follow the plan of care per PCP. This plan was discussed with Dr. Camp. Thank you for your consult, Please call us for any further questions or concerns. Dictated by BRITTANI Eisenberg for Melvin Camp MD Physician Attestation I have seen and examined the patient. I have discussed and reviewed the the note by Klaudia PETER and agree with findings and plan as documented. In brief, Mr. Ubaldo Quarles is a 39 year old man with h/o UC s/p subtotal colectomy with J-pouch in early who presents with chronic diarrhea, N/V, and lower abdominal pain. He had sigmoidoscopy in 06/2016 that showed acute and chronic pouchitis/cuffitis. He is currently not on any medications for his UC and is immunomodulator/biologic/anti-integrin/AIMEE inhibitor naive. He has some drug- seeking behavior. Labs unremarkable. Will plan for diagnostic sigmoidoscopy tomorrow. NPO after MN. MTDD
[2019-06-14] MEDS: LOMOTIL PO PRN (18:31)
[2019-06-14] MEDS: KLONOPIN PO SCH (21:45)
[2019-06-15] MEDS: ZOFRAN IV PRN ×3 (03:11→13:41)
[2019-06-15] MEDS: DILAUDID IV PRN ×3 (03:11→13:42)
[2019-06-15 07:22] LABS: BASO# 0.01 X1000 (0.0-0.2); BASO% 0.3 % (0.0-0.8); EOS# 0.03 X1000 (0.0-0.7); EOS% 0.8 % (0.0-10.0); HEMATOCRIT 37.5 % (42.0-52.0); LYMPH# 0.76 X1000 (1.2-3.4); LYMPH% 21.5 % (20.5-51.1); MCH 28.7 PG (27-31); MCV 89.7 FL (81-99); MONO# 0.54 X1000 (0.11-0.59); MONO% 15.3 % (1.7-9.3); MPV 9.4 FL (7.4-10.4); NEUT# 2.19 X1000 (1.4-6.5); NEUT% 62.1 % (42.2-75.2); PLT 346 X1000 (130-400); RBC 4.18 XMIL (4.7-6.1); WBC 3.53 X1000 (4.8-10.8)
[2019-06-15] MEDS: KLONOPIN PO SCH (08:13)
[2019-06-15] MEDS: EFFEXOR XR PO SCH (08:13)
[2019-06-15] MEDS ORDERED: VERSED ONE (10:41)
[2019-06-15] MEDS ORDERED: XYLOCAINE-MPF 2% ONE (11:23)
[2019-06-15] MEDS ORDERED: DIPRIVAN 1% ONE (11:23)
[2019-06-15] MEDS ORDERED: FENTANYL ONE (11:23)
--- NOTE | 2019-06-15 11:52 | ENDOSCOPY OPERATIVE NOTE ---
[facility] ENDOSCOPY OPERATIVE NOTE , PATIENT: Ubaldo Quarles Jr ADM DATE: 06/15/2019 MR #: [id number] : 1980 FLEXIBLE SIGMOIDOSCOPY PROCEDURE REPORT PROCEDURE DATE: 06/15/2019 SURGEON: Melvin Camp MD STATUS: inpatient THERMAL MOLDER: PREOPERATIVE DIAGNOSIS: The patient is a 39 yr old male here for a colonoscopy due to previously darius gnosed ulcerative colitis, general abdominal pain, and chronic diarrhea. PROCEDURE PERFORMED: Sigmoidoscopy with biopsy MEDICATIONS: Per Anesthesia PREP TYPE: Tap Water Enema PREP QUALITY: The overall prep quality was adequate. ESTIMATED BLOOD LOSS: None CONSENT: The patient understands the risks and benefits of the procedure and understands that these r isks include, but are not limited to: sedation, allergic reaction, infection, perforation and/or bleeding. Alternative means of evaluation and treatment include, among others: physical exam, x-rays, and/or surgical intervention. The patient elects to proceed with this endoscopic procedure. HISTORY AND PHYSICAL: 06/15/2019 DESCRIPTION OF PROCEDURE: During the intra-op preparation period all mechanical and medical equipment was checked for proper function. Hand hygiene and appropriate measures for infection prevention was taken. After the risks, benefits and alternatives of the procedure were thoroughly explained, Informed consent was verified, confirmed and timeout was successfully executed by the treatment team. A digital exam revealed no abnormalities of the rectum. The [id number] ([id number]) endoscope was introduced through the anus and advanced to the adelaide-terminal ileum. The instr ument was then slowly withdrawn as the colon was fully examined. COLON FINDINGS: Multiple apthae found in the adelaide-terminal ileum. Multiple biopsies obtain with cold biopsy forceps to rule out Crohn's. J-Pouch noted. Ulcerated cuffitis and pouchitis. Biopsies obtained with cold bio psy forceps. Retroflexion was not performed. The scope was then completely withdrawn from the patient and the proc edure terminated. SPECIMENS REMOVED: Yes ADVERSE EVENTS: There were no complications. POSTOPERATIVE DIAGNOSIS: 1. Multiple apthae found in the adelaide-terminal ileum. Multiple biopsies obtain with cold biopsy forceps to rule out Crohn's 2. 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 Biopsies obtained with cold biopsy forceps RECOMMENDATIONS: 1. Await biopsy results 2. Recommend 14 day treatment of ciprofloxacin and flagyl. He should follow-up with GI in 1-2 weeks upon discharge. He may need escalation of therapy RECALL: Melvin Camp MD eSigned: Melvin Camp MD 06/15/2019 11:53 AM Revised: 06/15/2019 11:53 AM cc: PATIENT NAME: Ubaldo Quarles Jr MR#: [id number]
[2019-06-15] MEDS ORDERED: FLAGYL PO SCH (13:00)
[2019-06-15 13:26] VITALS: BP 140/84
[2019-06-15] MEDS: LOMOTIL PO PRN (13:41)
--- NOTE | 2019-06-15 15:08 | DISCHARGE SUMMARY ---
ADMISSION DATE: 06/14/2019 DISCHARGE DATE: 06/15/2019 DISCHARGE DIAGNOSES: 1. Ulcerative colitis. 2. History of opiate addiction. CONSULTATIONS: Dr. Camp from GI. PROCEDURES: 1. Abdomen and pelvis CT showed nonspecific gaseous dilation of several bowel loops, but no change from prior. 2. Sigmoidoscopy showed multiple ulcers found in the neoterminal ilium. Multiple biopsies obtained with cold biopsy forceps to rule out Crohn's disease, and [id number] ulcerative colitis and pouchitis. HOSPITAL COURSE: This patient is a 39-year-old male with history of ulcerative colitis. Previous records shows that the patient has opiate addiction. He presented to the emergency department complaining of abdominal pain. He was admitted to the hospital. Laboratories were not remarkable. GI initially said that this patient needs to have sigmoidoscopy as an outpatient, but then they decided to do it inpatient, with results as above. After procedure, I talked personally with Dr. Capm, who was okay to send this patient home with oral antibiotics and pain medication if needed. The patient is supposed to see Dr. West in [place]. On the day of discharge, I spent 45 minutes trying to explain to him why this patient does not need to stay in the hospital with IV pain medication. The patient was very specific to continue to receive Dilaudid and Phenergan. His white cell count has never been elevated, he has not had any fever. While he is complaining of abdominal pain, he is non- tachycardic, he does not look to be in any distress because of the pain, so the decision was made to send him home with oral antibiotics and pain medication as needed as well. DISCHARGE PHYSICAL EXAMINATION: Vital Signs: Temperature 98.6, heart rate 88, respiratory rate 18, blood pressure 140/84, O2 saturation 98% on room air. General: This is a 39-year-old male, lying in bed in no acute distress. Cardiovascular: S1, S2 heard. No murmurs, gallops, or rubs. Regular rate and rhythm. Respiratory: Clear bilaterally to auscultation. No work of breathing or using accessory muscles. Abdomen: Soft, nontender to palpation. Bowel sounds present. No organomegaly. Extremities: No clubbing, cyanosis, or edema. Peripheral pulses present in both legs. Neurological: The patient is alert and oriented x3. Moves all 4 extremities. DISCHARGE DISPOSITION: Home to self-care. FOLLOWUP: Follow up with Dr. Michael West in 2 weeks. DISCHARGE MEDICATIONS: 1. Levaquin 750 mg 1 tablet p.o. daily for 10 days. 2. Metronidazole 500 mg p.o. 3 times per day for 10 days. 3. Deville 5 mg 1 tablet p.o. every 4 hours p.r.n. DISCHARGE TIME: 55 minutes. cc: Celestine Guzmán MD MTDD
[2019-06-15] MEDS ORDERED: CIPRO PO SCH (21:00)
== END 2019-06-15 16:43 | disposition home or self-care (01) | DRG 386 ==
LOC: ED 16:06 → 3N 16:06 → OBSVTOIN 06-14 02:05 → SUATTDRO 06-14 02:05
PROVIDERS: ATTEND Internal Medicine